=== PATIENT | female | born 1940 | race Two or more races ===

== ENCOUNTER 2017-04-18 13:35 | Emergency (ER) | payer OTHER, MEDICAID ==
[~2017-04-18] VITALS: Ht 157.5 cm; Wt 62.6 kg
[~2017-04-18 13:35] MED LIST: ALPR0.254 PO; BUSP15TA60 PO; CAR125T PO; DOCU-94 PO; LISI40TA PO; OMEP20CA74 PO
[2017-04-18 14:42] LABS: Hematocrit 38.8 % (36.0-46.0); Hemoglobin 13.2 g/dL (12.2-16.2); Mean Corpuscular Volume 94.3 fL (80.0-100.0); Mean Platelet Volume 7.6 fL (6.9-10.8); Platelet Count (auto) 310 10^3/uL (140-450); Red Cell Distribution Width 12.9 % (11.8-14.3); White Blood Cell 10.6 10^3/uL (4.4-10.8)
[2017-04-18 14:44] LABS: Metamyelocytes % 0; Myelocytes % 0; Promyelocytes % 0; Reactive Lymphocytes 0
[2017-04-18 14:55] LABS: Albumin 3.5 g/dL (3.4-5.0); Anion Gap 11 (5-15); Aspartate Aminotransferase 18 U/L (15-37); BUN/Creatinine Ratio 22.2; Blood Urea Nitrogen 18 mg/dL (7-18); Calcium 8.6 mg/dL (8.5-10.1); Carbon Dioxide 23 mmol/L (21-32); Chloride 99 mmol/L (98-107); GFR African American 88 mL/min; GFR Non-African American 72 mL/min; Glucose 117 mg/dL (74-106); Potassium 4.2 mmol/L (3.5-5.1); Sodium 133 mmol/L (136-145)
[2017-04-18 14:59] LABS: Alkaline Phosphatase 80 U/L (45-117); Bilirubin, Total 0.4 mg/dL (0.2-1.0); Total Protein 7.5 g/dL (6.4-8.2)
[2017-04-18 17:34] LABS: Platelet Estimate Adequate
[2017-04-18 17:35] LABS: Burr Cells FEW
[2017-04-19 00:56] VITALS: BP 133/58
== END 2017-04-19 00:59 | disposition home or self-care (01) ==
LOC: ER 13:35 → EDBD 13:35 → ER 04-19 00:59
DX: F41.0 Panic disorder [episodic paroxysmal anxiety] (principal); I10 Essential (primary) hypertension; R07.89 Other chest pain; E11.9 Type 2 diabetes mellitus without complications; Z86.73 Personal history of transient ischemic attack (TIA), and cerebral infarction without residual deficits; Z79.899 Other long term (current) drug therapy
CPT/HCPCS: 36415; 70450; 71010; 80053; 83735; 84484; 85007; 85027; 93005

== ENCOUNTER 2021-07-15 14:14 | Emergency (ER) | payer MEDICAID, OTHER ==
[~2021-07-15] VITALS: Ht 167.6 cm; Wt 81.6 kg
[~2021-07-15 14:14] MED LIST changes: +ASPI1TAB20 PO; +ATOR40TA52 PO; +CLOP75TA28 PO; +DOCU1CAP46 PO; -LISI40TA PO; +LISI40TA11 PO; +LORA-655 PO; +MET25T PO; +NIFE1TAB31 PO; +NITR-87 PO; +PANT40TA2 PO; +RANO500T PO
[2021-07-15 19:35] VITALS: BP 162/84
[2021-07-15] MEDS ORDERED: SULF400T11 PO (19:41)
== END 2021-07-15 20:02 | disposition home or self-care (01) ==
LOC: EDBD 14:14 → ER 14:14
DX: M25.552 Pain in left hip (principal); M25.551 Pain in right hip; G89.4 Chronic pain syndrome; N39.0 Urinary tract infection, site not specified; E11.9 Type 2 diabetes mellitus without complications; I10 Essential (primary) hypertension; Z90.49 Acquired absence of other specified parts of digestive tract; W01.0XXA Fall on same level from slipping, tripping and stumbling without subsequent striking against object, initial encounter; Y93.89 Activity, other specified; Y92.89 Other specified places as the place of occurrence of the external cause; Y99.8 Other external cause status
CPT/HCPCS: 72192

== ENCOUNTER 2021-10-15 16:21 | Inpatient (IN) | payer OTHER, MEDICAID ==
[~2021-10-15] VITALS: Ht 157.5 cm; Wt 78.5 kg
[~2021-10-15 16:21] MED LIST changes: +SULF400T11 PO
[2021-10-15 17:17] LABS: Basophils # (auto) 0 10 ^3/uL (0-0.2); Basophils % (auto) 0.6 % (0.0-2.0); Eosinophils # (auto) 0.1 10 ^3/uL (0-0.8); Eosinophils % (auto) 1.4 % (0.0-7.0); Hematocrit 34.4 % (36.0-46.0); Lymphocytes # (auto) 1.3 10 ^3/uL (0.4-5.4); Lymphocytes % (auto) 20.7 % (10.0-50.0); Mean Corpuscular Hemoglobin 31.3 pg (28.0-32.0); Mean Corpuscular Hgb Conc. 34.8 g/dL (32.0-36.0); Monocytes # (auto) 0.6 10 ^3/uL (0-1.3); Monocytes % (auto) 8.8 % (0.0-12.0); Neutrophils # (auto) 4.4 10 ^3/uL (1.6-8.6); Neutrophils % (auto) 68.5 % (37.0-80.0); Red Blood Cells 3.82 10^6/uL (4.0-5.20); Red Cell Distribution Width 14.2 % (11.8-14.3); White Blood Cell 6.4 10^3/uL (4.4-10.8)
[2021-10-15 17:33] LABS: Albumin 3.3 g/dL (3.4-5.0); BUN/Creatinine Ratio 16.3; Potassium 3.9 mmol/L (3.5-5.1)
[2021-10-15 17:36] LABS: Bilirubin, Total 0.2 mg/dL (0.2-1.0); Total Protein 7.3 g/dL (6.4-8.2)
[2021-10-15] MEDS: SOD CHL 0.45% 1,000 ML IV SCH (22:15)
[2021-10-15] MEDS ORDERED: NITROGLYCERIN 0.4 MG SL TAB SL PRN (22:15)
[2021-10-15] MEDS ORDERED: MORPHINE SULFATE INJECTION 2 MG/ML SYRG IV PRN (22:15)
[2021-10-15] MEDS ORDERED: DEXTROSE (50%) 50ML SYRG IV PRN (22:30)
[2021-10-15] MEDS: busPIRone HCL 10 MG TAB PO SCH (22:58)
[2021-10-16] VITALS (8 sets, daily range): BP systolic 140–166; BP diastolic 50–76
[2021-10-16] MEDS ORDERED: LOSA25TA38 PO (01:39)
[2021-10-16] MEDS: InsuLIN REG 1unit/0.01ml Soln (100units/ml) SC SCH ×4 (06:39→22:00)
[2021-10-16] MEDS: ACCU-CHEK COMFORT CURVE STRIP VI SCH ×4 (06:39→23:42)
[2021-10-16] MEDS ORDERED: ATOR20TA50 PO (07:43)
[2021-10-16] MEDS: ATORVASTATIN 20 MG TAB PO SCH (09:15)
[2021-10-16] MEDS: ASPirin-EC 81 mg tab PO SCH (09:15)
[2021-10-16] MEDS: CLOPIDOGREL BISULFATE 75 MG TAB PO SCH (09:15)
[2021-10-16] MEDS: PANTOPRAZOLE 40 MG TAB PO SCH (09:15)
[2021-10-16] MEDS: LISINOPRIL 20 MG TAB PO SCH (09:15)
[2021-10-16] MEDS: CARVEDILOL 12.5 MG TAB PO SCH ×2 (09:16→23:42)
[2021-10-16] MEDS: DOCUSATE SOD 100 MG CAP PO SCH (09:16)
[2021-10-16] MEDS: busPIRone HCL 10 MG TAB PO SCH ×2 (09:16→23:41)
[2021-10-16] MEDS: RANOLAZINE ER 500 MG TAB PO SCH ×2 (09:16→23:42)
[2021-10-16] MEDS: NIFEdipine ER 30 MG TAB PO SCH (09:17)
[2021-10-16] MEDS: SOD CHL 0.45% 1,000 ML IV SCH (14:35)
[2021-10-17 04:49] VITALS: BP 125/56
[2021-10-17] MEDS: SOD CHL 0.45% 1,000 ML IV SCH (05:09)
[2021-10-17] MEDS: InsuLIN REG 1unit/0.01ml Soln (100units/ml) SC SCH ×4 (06:08→21:57)
[2021-10-17] MEDS: ACCU-CHEK COMFORT CURVE STRIP VI SCH ×4 (06:09→21:57)
[2021-10-17 09:00] VITALS: BP 139/59
[2021-10-17] MEDS: DOCUSATE SOD 100 MG CAP PO SCH (09:00)
[2021-10-17] MEDS: RANOLAZINE ER 500 MG TAB PO SCH ×2 (09:01→21:57)
[2021-10-17] MEDS: NIFEdipine ER 30 MG TAB PO SCH (09:01)
[2021-10-17] MEDS: ATORVASTATIN 20 MG TAB PO SCH (09:01)
[2021-10-17] MEDS: ASPirin-EC 81 mg tab PO SCH (09:01)
[2021-10-17] MEDS: LISINOPRIL 20 MG TAB PO SCH (09:02)
[2021-10-17] MEDS: busPIRone HCL 10 MG TAB PO SCH ×2 (09:02→21:56)
[2021-10-17] MEDS: CLOPIDOGREL BISULFATE 75 MG TAB PO SCH (09:02)
[2021-10-17] MEDS: PANTOPRAZOLE 40 MG TAB PO SCH (09:02)
[2021-10-17] MEDS: CARVEDILOL 12.5 MG TAB PO SCH ×2 (09:03→21:57)
[2021-10-17 13:00] VITALS: BP 136/60
[2021-10-17 17:00] VITALS: BP 145/67
[2021-10-17 22:00] VITALS: BP 136/60
[2021-10-18] MEDS: SOD CHL 0.45% 1,000 ML IV SCH ×2 (00:15→17:40)
[2021-10-18 05:00] VITALS: BP 135/67
[2021-10-18] MEDS: InsuLIN REG 1unit/0.01ml Soln (100units/ml) SC SCH ×4 (06:39→21:55)
[2021-10-18] MEDS: ACCU-CHEK COMFORT CURVE STRIP VI SCH ×4 (06:39→21:54)
[2021-10-18 09:00] VITALS: BP 157/70
[2021-10-18] MEDS: busPIRone HCL 10 MG TAB PO SCH ×2 (10:05→21:43)
[2021-10-18] MEDS: RANOLAZINE ER 500 MG TAB PO SCH ×2 (10:06→21:47)
[2021-10-18] MEDS: ATORVASTATIN 20 MG TAB PO SCH (10:06)
[2021-10-18] MEDS: DOCUSATE SOD 100 MG CAP PO SCH (10:08)
[2021-10-18] MEDS: CLOPIDOGREL BISULFATE 75 MG TAB PO SCH (10:08)
[2021-10-18] MEDS: ASPirin-EC 81 mg tab PO SCH (10:08)
[2021-10-18] MEDS: PANTOPRAZOLE 40 MG TAB PO SCH (10:08)
[2021-10-18] MEDS: LISINOPRIL 20 MG TAB PO SCH (10:09)
[2021-10-18] MEDS: NIFEdipine ER 30 MG TAB PO SCH (10:09)
[2021-10-18] MEDS: CARVEDILOL 12.5 MG TAB PO SCH ×2 (10:10→21:46)
[2021-10-18 13:00] VITALS: BP 140/60
[2021-10-18 16:34] VITALS: BP 134/54
[2021-10-18 22:00] VITALS: BP 126/50
[2021-10-19 05:00] VITALS: BP 133/47
[2021-10-19] MEDS: InsuLIN REG 1unit/0.01ml Soln (100units/ml) SC SCH ×4 (06:14→22:00)
[2021-10-19] MEDS: RANOLAZINE ER 500 MG TAB PO SCH ×2 (09:03→22:06)
[2021-10-19] MEDS: busPIRone HCL 10 MG TAB PO SCH ×2 (09:04→22:05)
[2021-10-19] MEDS: DOCUSATE SOD 100 MG CAP PO SCH (09:04)
[2021-10-19] MEDS: LISINOPRIL 20 MG TAB PO SCH (09:04)
[2021-10-19] MEDS: ASPirin-EC 81 mg tab PO SCH (09:05)
[2021-10-19] MEDS: CLOPIDOGREL BISULFATE 75 MG TAB PO SCH (09:06)
[2021-10-19] MEDS: NIFEdipine ER 30 MG TAB PO SCH (09:06)
[2021-10-19] MEDS: CARVEDILOL 12.5 MG TAB PO SCH ×2 (09:08→22:06)
[2021-10-19] MEDS: ACCU-CHEK COMFORT CURVE STRIP VI SCH ×4 (09:10→22:06)
[2021-10-19 09:14] VITALS: BP 167/74
[2021-10-19] MEDS: ATORVASTATIN 20 MG TAB PO SCH (10:00)
[2021-10-19] MEDS: PANTOPRAZOLE 40 MG TAB PO SCH (10:32)
[2021-10-19] MEDS: SOD CHL 0.45% 1,000 ML IV SCH (10:39)
[2021-10-19 13:00] VITALS: BP 130/54
[2021-10-19] MEDS ORDERED: ZOLPIDEM TARTRATE 5 MG TAB PO PRN (16:45)
[2021-10-19 17:00] VITALS: BP 116/54
[2021-10-19] MEDS: ACETAMINOPHEN 500 MG TAB PO PRN (17:19)
[2021-10-19 22:00] VITALS: BP 142/59
[2021-10-19] MEDS ORDERED: TEMAZEPAM 15 MG CAP PO ONE (23:15)
[2021-10-20] MEDS: SOD CHL 0.45% 1,000 ML IV SCH ×2 (03:13→18:47)
[2021-10-20] MEDS: ACCU-CHEK COMFORT CURVE STRIP VI SCH ×4 (06:36→22:00)
[2021-10-20] MEDS: InsuLIN REG 1unit/0.01ml Soln (100units/ml) SC SCH ×4 (06:36→21:38)
[2021-10-20 06:45] VITALS: BP 148/79
[2021-10-20 08:25] VITALS: BP 148/69
[2021-10-20] MEDS: busPIRone HCL 10 MG TAB PO SCH ×2 (09:27→21:34)
[2021-10-20] MEDS: DOCUSATE SOD 100 MG CAP PO SCH (09:27)
[2021-10-20] MEDS: ASPirin-EC 81 mg tab PO SCH (09:28)
[2021-10-20] MEDS: CLOPIDOGREL BISULFATE 75 MG TAB PO SCH (09:28)
[2021-10-20] MEDS: CARVEDILOL 12.5 MG TAB PO SCH ×3 (09:28→23:00)
[2021-10-20] MEDS: ATORVASTATIN 20 MG TAB PO SCH (09:28)
[2021-10-20] MEDS: NIFEdipine ER 30 MG TAB PO SCH (09:29)
[2021-10-20] MEDS: RANOLAZINE ER 500 MG TAB PO SCH ×2 (09:30→21:33)
[2021-10-20] MEDS: PANTOPRAZOLE 40 MG TAB PO SCH (09:30)
[2021-10-20] MEDS: LISINOPRIL 20 MG TAB PO SCH (09:31)
[2021-10-20 13:00] VITALS: BP 135/66
[2021-10-20 16:59] VITALS: BP 148/67
[2021-10-20 22:00] VITALS: BP 132/50
[2021-10-21 05:15] VITALS: BP 131/57
[2021-10-21] MEDS: InsuLIN REG 1unit/0.01ml Soln (100units/ml) SC SCH ×2 (06:11→11:11)
[2021-10-21] MEDS: ACCU-CHEK COMFORT CURVE STRIP VI SCH ×2 (06:11→11:11)
[2021-10-21] MEDS: ACETAMINOPHEN 500 MG TAB PO PRN (09:12)
[2021-10-21] MEDS: busPIRone HCL 10 MG TAB PO SCH (09:12)
[2021-10-21] MEDS: ATORVASTATIN 20 MG TAB PO SCH (09:13)
[2021-10-21] MEDS: ASPirin-EC 81 mg tab PO SCH (09:13)
[2021-10-21] MEDS: CLOPIDOGREL BISULFATE 75 MG TAB PO SCH (09:13)
[2021-10-21] MEDS: DOCUSATE SOD 100 MG CAP PO SCH (09:13)
[2021-10-21] MEDS: PANTOPRAZOLE 40 MG TAB PO SCH (09:14)
[2021-10-21] MEDS: NIFEdipine ER 30 MG TAB PO SCH (09:14)
[2021-10-21] MEDS: RANOLAZINE ER 500 MG TAB PO SCH (09:14)
[2021-10-21] MEDS: LISINOPRIL 20 MG TAB PO SCH (09:14)
[2021-10-21] MEDS: SOD CHL 0.45% 1,000 ML IV SCH (11:12)
[2021-10-21 11:37] VITALS: BP 166/57
[2021-10-21 12:07] VITALS: BP 166/57
== END 2021-10-21 15:42 | disposition short-term general hospital (02) | DRG 280 ==
LOC: ER 16:21 → EDUNIT# 16:21 → EDBD 16:21 → OVERFLOW 22:01 → TELE-WESTW 23:31
PROVIDERS: ADMIT Internal Medicine; ATTEND Family Medicine
DX: I21.4 Non-ST elevation (NSTEMI) myocardial infarction (principal); I50.23 Acute on chronic systolic (congestive) heart failure; I11.0 Hypertensive heart disease with heart failure; I25.10 Atherosclerotic heart disease of native coronary artery without angina pectoris; I08.0 Rheumatic disorders of both mitral and aortic valves; E11.9 Type 2 diabetes mellitus without complications; E78.00 Pure hypercholesterolemia, unspecified; K21.9 Gastro-esophageal reflux disease without esophagitis; I45.10 Unspecified right bundle-branch block; I44.7 Left bundle-branch block, unspecified; F32.A Depression, unspecified; F41.9 Anxiety disorder, unspecified; Z20.822 Contact with and (suspected) exposure to COVID-19; Z79.02 Long term (current) use of antithrombotics/antiplatelets; Z79.82 Long term (current) use of aspirin; Z79.899 Other long term (current) drug therapy; Z90.49 Acquired absence of other specified parts of digestive tract; Z79.4 Long term (current) use of insulin
CPT/HCPCS: 36415; 71045; 80053; 82962; 83880; 84484; 85025; 93005; 93306; G0378; J1815

== ENCOUNTER 2022-12-23 14:56 | Emergency (ER) | payer OTHER, MEDICAID ==
[~2022-12-23] VITALS: Ht 160 cm; Wt 65.9 kg
[~2022-12-23 14:56] MED LIST changes: +ATOR20TA50 PO; -ATOR40TA52 PO; -BUSP15TA60 PO; -CAR125T PO; -LISI40TA11 PO; -LORA-655 PO; +LOSA25TA15 PO; -NIFE1TAB31 PO; -OMEP20CA74 PO
[2022-12-23 15:59] LABS: Albumin 3.3 g/dL (3.4-5.0); Calcium 8.6 mg/dL (8.5-10.1); Magnesium 2.4 mg/dL (1.6-2.6); Potassium 4.9 mmol/L (3.5-5.1)
[2022-12-23 16:02] LABS: BUN/Creatinine Ratio 17.8 (10.0-20.0); Bilirubin, Total 0.3 mg/dL (0.2-1.0); Total Protein 6.8 g/dL (6.4-8.2)
[2022-12-23 16:04] LABS: Basophils # (auto) 0 10 ^3/uL (0-0.2); Basophils % (auto) 0.5 % (0.0-2.0); Eosinophils # (auto) 0.1 10 ^3/uL (0-0.8); Eosinophils % (auto) 1.8 % (0.0-7.0); Hematocrit 33.4 % (36.0-46.0); Hemoglobin 11.2 g/dL (12.2-16.2); Lymphocytes # (auto) 1.2 10 ^3/uL (0.4-5.4); Lymphocytes % (auto) 14.9 % (10.0-50.0); Mean Corpuscular Hgb Conc. 33.6 g/dL (32.0-36.0); Mean Corpuscular Volume 92.1 fL (80.0-100.0); Monocytes # (auto) 0.6 10 ^3/uL (0-1.3); Monocytes % (auto) 7.7 % (0.0-12.0); Neutrophils # (auto) 6.1 10 ^3/uL (1.6-8.6); Neutrophils % (auto) 75.1 % (37.0-80.0); Red Blood Cells 3.63 10^6/uL (4.0-5.20); Red Cell Distribution Width 13.9 % (11.8-14.3); White Blood Cell 8.2 10^3/uL (4.4-10.8)
[2022-12-23 18:00] VITALS: BP 178/78
[2022-12-23] MEDS ORDERED: cloNIDine HCL 0.1 MG TAB PO ONE (18:00)
== END 2022-12-23 18:01 | disposition home or self-care (01) ==
LOC: EDBD 14:56 → ER 14:56
DX: I16.0 Hypertensive urgency (principal); I10 Essential (primary) hypertension; R42 Dizziness and giddiness; B34.9 Viral infection, unspecified; K21.9 Gastro-esophageal reflux disease without esophagitis; E78.5 Hyperlipidemia, unspecified; Z90.49 Acquired absence of other specified parts of digestive tract
CPT/HCPCS: 36415; 70450; 71045; 80053; 82962; 83735; 84484; 85025; 93005

== ENCOUNTER 2023-02-27 16:08 | Emergency (ER) | payer OTHER, MEDICAID ==
[~2023-02-27] VITALS: Ht 157.5 cm; Wt 65.4 kg
[~2023-02-27 16:08] MED LIST changes: +AML5T PO; -ATOR20TA50 PO; +ATOR40TA52 PO; +CARV12.544 PO; +CARV25TA55 PO; -DOCU1CAP46 PO; +LEV25T PO; +MELO-335 PO; -MET25T PO; +MIRT1TAB38 PO; -NITR-87 PO; +SACU1TAB7 PO; -SULF400T11 PO
[2023-02-27 17:33] LABS: Basophils # (auto) 0 10 ^3/uL (0-0.2); Basophils % (auto) 0.6 % (0.0-2.0); Eosinophils # (auto) 0.2 10 ^3/uL (0-0.8); Eosinophils % (auto) 2.7 % (0.0-7.0); Hematocrit 33.6 % (36.0-46.0); Hemoglobin 11.5 g/dL (12.2-16.2); Lymphocytes # (auto) 1.8 10 ^3/uL (0.4-5.4); Lymphocytes % (auto) 21.3 % (10.0-50.0); Mean Corpuscular Hemoglobin 31.9 pg (28.0-32.0); Mean Corpuscular Hgb Conc. 34.3 g/dL (32.0-36.0); Monocytes # (auto) 0.8 10 ^3/uL (0-1.3); Monocytes % (auto) 9.1 % (0.0-12.0); Neutrophils # (auto) 5.6 10 ^3/uL (1.6-8.6); Neutrophils % (auto) 66.3 % (37.0-80.0); Nucleated Red Blood Cells % 0.1 %; Red Blood Cells 3.61 10^6/uL (4.0-5.20); White Blood Cell 8.4 10^3/uL (4.4-10.8)
[2023-02-27 17:52] LABS: Alanine Aminotransferase 17 U/L (7-40); Albumin 4.3 g/dL (3.2-4.8); Alkaline Phosphatase 73 U/L (46-116); Anion Gap 5.7 (5-15); Aspartate Aminotransferase 17 U/L (13-40); BUN/Creatinine Ratio 16.1 (10.0-20.0); Bilirubin, Total 0.3 mg/dL (0.2-1.0); Blood Urea Nitrogen 19 mg/dL (9-23); Calcium 9.6 mg/dL (8.5-10.1); Carbon Dioxide 22.3 mmol/L (20-30); Chloride 102 mmol/L (98-107); Glucose 108 mg/dL (74-106); Lipase 62 U/L (12-53); Potassium 5.2 mmol/L (3.5-5.1); Sodium 130 mmol/L (136-145); Total Protein 7.1 g/dL (5.7-8.2)
[2023-02-27] MEDS ORDERED: SODIUM CHLORIDE 0.9% 500 ML IV ONE (18:15)
[2023-02-27] MEDS ORDERED: ALBUTEROL SULF 2.5 MG/0.5ML(0.5%) NEB SOLN NEB ONE (18:15)
[2023-02-27 19:14] LABS: Urine Bacteria NONE SEEN /hpf (None Seen); Urine Blood Negative /uL (Negative); Urine Clarity Clear (Clear); Urine Color Colorless (Yellow); Urine Protein, UAD Negative (Negative); Urine Specific Gravity 1.003 (1.001-1.035); Urine Urobilinogen Normal (Negative); Urine WBC 1 /hpf (0 - 5); Urine pH 5.5 (5.0-8.0)
[2023-02-27 20:00] VITALS: TEMP 97.7
[2023-02-27 22:30] LABS: Alanine Aminotransferase 16 U/L (7-40); Albumin 4.3 g/dL (3.2-4.8); Alkaline Phosphatase 69 U/L (46-116); Anion Gap 6.8 (5-15); Aspartate Aminotransferase 13 U/L (13-40); BUN/Creatinine Ratio 15.9 (10.0-20.0); Blood Urea Nitrogen 18 mg/dL (9-23); Calcium 9.7 mg/dL (8.7-10.4); Carbon Dioxide 21.2 mmol/L (20-30); Chloride 102 mmol/L (98-107); Glucose 143 mg/dL (74-106); Sodium 130 mmol/L (136-145)
[2023-02-27 22:31] LABS: Bilirubin, Total 0.4 mg/dL (0.2-1.0)
[2023-02-27] MEDS ORDERED: METR-344 PO (22:43)
[2023-02-27] MEDS ORDERED: CIPR-173 PO (22:43)
[2023-02-27] MEDS ORDERED: FUROSEMIDE 20 MG/2 ML VIAL IV ONE (23:00)
[2023-02-28 00:40] VITALS: BP 145/53; PULSE 69; RESP 18; O2SAT 98
== END 2023-02-28 00:49 | disposition home or self-care (01) ==
LOC: ER 16:08
DX: K57.92 Diverticulitis of intestine, part unspecified, without perforation or abscess without bleeding (principal); I10 Essential (primary) hypertension; K59.00 Constipation, unspecified; E11.9 Type 2 diabetes mellitus without complications; I25.10 Atherosclerotic heart disease of native coronary artery without angina pectoris; E78.5 Hyperlipidemia, unspecified; Z90.49 Acquired absence of other specified parts of digestive tract; Z90.89 Acquired absence of other organs; Z79.899 Other long term (current) drug therapy; Z79.82 Long term (current) use of aspirin
CPT/HCPCS: 36415; 71045; 74176; 80053; 81001; 83605; 83690; 83880; 84484; 85025; 93005; 94640; 96361; 96374; 99285; J1940

== ENCOUNTER 2024-02-26 12:28 | Inpatient (IN) | payer OTHER, MEDICAID ==
[~2024-02-26] VITALS: Ht 152.4 cm; Wt 71.0 kg
[~2024-02-26 12:28] MED LIST changes: +AMLO1TAB22 PO; +ASPI-543 PO; +CIPR-173 PO; +CYA100I IM; +CYCL0.05 EACHEYE; +EMPA1TAB PO; +LEVO25TA6 PO; +LOSA-533 PO; -LOSA25TA15 PO; -MELO-335 PO; +MELO15TA29 PO; +METR-344 PO; +RANO500T3 PO
[2024-02-26 14:28] LABS: Basophils # (auto) 0 10 ^3/uL (0-0.2); Basophils % (auto) 0.7 % (0.0-2.0); Eosinophils # (auto) 0.3 10 ^3/uL (0-0.8); Eosinophils % (auto) 3.8 % (0.0-7.0); Hematocrit 37.7 % (36.0-46.0); Hemoglobin 13.3 g/dL (12.2-16.2); Lymphocytes # (auto) 1.4 10 ^3/uL (0.4-5.4); Lymphocytes % (auto) 21.2 % (10.0-50.0); Mean Corpuscular Hemoglobin 33.8 pg (28.0-32.0); Mean Corpuscular Hgb Conc. 35.2 g/dL (32.0-36.0); Mean Corpuscular Volume 96.2 fL (80.0-100.0); Monocytes # (auto) 0.8 10 ^3/uL (0-1.3); Monocytes % (auto) 11.5 % (0.0-12.0); Neutrophils # (auto) 4.3 10 ^3/uL (1.6-8.6); Neutrophils % (auto) 62.8 % (37.0-80.0); Platelet Count (auto) 221 10^3/uL (140-450); Red Blood Cells 3.92 10^6/uL (4.0-5.20); Red Cell Distribution Width 13.8 % (11.8-14.3); White Blood Cell 6.8 10^3/uL (4.4-10.8)
[2024-02-26 14:42] LABS: Chloride 100 mmol/L (98-107); Potassium 4.8 mmol/L (3.5-5.1); Sodium 129 mmol/L (136-145)
[2024-02-26 14:43] LABS: Anion Gap 6 (5-15); Calcium 9.7 mg/dL (8.7-10.4); Carbon Dioxide 23 mmol/L (20-30)
[2024-02-26 14:48] LABS: BUN/Creatinine Ratio 19.1 (10.0-20.0); Blood Urea Nitrogen 21 mg/dL (9-23); Glucose 94 mg/dL (74-106)
[2024-02-26] MEDS ORDERED: ONDANSETRON HCL 4 MG/2 ML VIAL IV PRN (18:30)
[2024-02-26] MEDS ORDERED: HYDROcodone-ACET 5/325MG TAB PO PRN (18:30)
[2024-02-26] MEDS ORDERED: MORPHINE SULFATE INJ 2 MG/ml SYRG IV PRN (19:00)
[2024-02-26] MEDS ORDERED: NITROGLYCERIN 0.4 MG SL TAB SL PRN (19:00)
[2024-02-26] MEDS: AZITHROMYCIN 500MG/ 250ML 250 ML IV ONE (20:22)
[2024-02-26] MEDS: SODIUM CHLORIDE 0.9% 1,000 ML IV SCH (20:22)
[2024-02-26 20:26] LABS: Urine Bacteria None Seen /hpf (None Seen)
[2024-02-26] MEDS: ACETAMINOPHEN 325 MG TAB PO PRN (20:29)
[2024-02-26 20:36] LABS: Urine Blood Negative /uL (Negative); Urine Clarity Clear (Clear); Urine Color Colorless (Yellow); Urine Protein, UAD Negative (Negative); Urine Specific Gravity 1.002 (1.001-1.035); Urine Urobilinogen Normal (Negative); Urine WBC 2 /hpf (0 - 5)
[2024-02-26] MEDS: ATORVASTATIN 20 MG TAB PO SCH (22:50)
[2024-02-26] MEDS: CARVEDILOL 3.125 MG TAB PO SCH (22:51)
[2024-02-27] VITALS (10 sets, daily range): BP systolic 135–175; BP diastolic 58–77; PULSE 59–79; RESP 16–21; TEMP 97.5–98.3; O2SAT 0–99
[2024-02-27] MEDS: LEVOTHYROXINE SODIUM 25 MCG TAB PO SCH (06:22)
[2024-02-27 06:48] LABS: Basophils # (auto) 0 10 ^3/uL (0-0.2); Basophils % (auto) 0.6 % (0.0-2.0); Eosinophils # (auto) 0.4 10 ^3/uL (0-0.8); Eosinophils % (auto) 5.9 % (0.0-7.0); Hematocrit 37.8 % (36.0-46.0); Hemoglobin 12.9 g/dL (12.2-16.2); Lymphocytes # (auto) 1.5 10 ^3/uL (0.4-5.4); Lymphocytes % (auto) 21.5 % (10.0-50.0); Mean Corpuscular Hemoglobin 32.7 pg (28.0-32.0); Mean Corpuscular Hgb Conc. 34.2 g/dL (32.0-36.0); Mean Corpuscular Volume 95.6 fL (80.0-100.0); Monocytes # (auto) 0.8 10 ^3/uL (0-1.3); Monocytes % (auto) 11.3 % (0.0-12.0); Neutrophils # (auto) 4.2 10 ^3/uL (1.6-8.6); Neutrophils % (auto) 60.7 % (37.0-80.0); Platelet Count (auto) 235 10^3/uL (140-450); Red Blood Cells 3.95 10^6/uL (4.0-5.20); Red Cell Distribution Width 13.6 % (11.8-14.3); White Blood Cell 6.9 10^3/uL (4.4-10.8)
[2024-02-27 06:57] LABS: Alanine Aminotransferase 12 U/L (7-40); Albumin 4.4 g/dL (3.2-4.8); Alkaline Phosphatase 54 U/L (46-116); Anion Gap 6 (5-15); Aspartate Aminotransferase 12 U/L (13-40); Blood Urea Nitrogen 17 mg/dL (9-23); Calcium 9.8 mg/dL (8.7-10.4); Carbon Dioxide 25 mmol/L (20-30); Chloride 103 mmol/L (98-107); Glucose 96 mg/dL (74-106); Potassium 4.1 mmol/L (3.5-5.1)
[2024-02-27 06:58] LABS: Bilirubin, Total 0.5 mg/dL (0.2-1.0); Total Protein 7.2 g/dL (5.7-8.2)
[2024-02-27 06:59] LABS: Sodium 134 mmol/L (136-145)
[2024-02-27] MEDS: ASPirin 81 mg TAB PO SCH (08:48)
[2024-02-27] MEDS: AZITHROMYCIN 500MG/ 250ML 250 ML IV SCH (08:49)
[2024-02-27] MEDS: DOCUSATE SOD 100 MG CAP PO PRN (08:51)
[2024-02-27] MEDS: cefTRIAXone 1GM/50ML D5W 50 ML IV ONE (17:47)
[2024-02-27] MEDS: CARVEDILOL 12.5 MG TAB PO SCH (21:48)
[2024-02-27] MEDS: SACUBITRIL-VALSARTAN 24mg/26mg TAB PO SCH (21:48)
[2024-02-28] VITALS (8 sets, daily range): BP systolic 119–150; BP diastolic 44–56; PULSE 64–77; RESP 16–19; TEMP 97.8–98.3; O2SAT 96–99
[2024-02-28] MEDS: cefTRIAXone 1GM/50ML D5W 50 ML IV SCH (10:31)
[2024-02-29] VITALS (8 sets, daily range): BP systolic 130–148; BP diastolic 54–61; PULSE 67–92; RESP 16–18; TEMP 97.8–98.6; O2SAT 95–100
[2024-02-29] MEDS ORDERED: LEVO500T91 PO (13:15)
[2024-03-01] VITALS (7 sets, daily range): BP systolic 132–150; BP diastolic 51–62; PULSE 67–72; RESP 16–18; TEMP 97.7–98.5; O2SAT 97–99
== END 2024-03-01 17:20 | disposition home health service (06) | DRG 178 ==
LOC: EDBD 12:28 → ER 12:28 → TELE 19:01 → TELE-WESTW 23:44
PROVIDERS: ADMIT Nurse Practitioner Family; ATTEND Internal Medicine Geriatric Medicine
DX: J15.69 Pneumonia due to other Gram-negative bacteria (principal); E87.1 Hypo-osmolality and hyponatremia; I50.22 Chronic systolic (congestive) heart failure; J15.9 Unspecified bacterial pneumonia; E78.5 Hyperlipidemia, unspecified; E11.9 Type 2 diabetes mellitus without complications; E03.9 Hypothyroidism, unspecified; I11.0 Hypertensive heart disease with heart failure; I25.10 Atherosclerotic heart disease of native coronary artery without angina pectoris; I08.0 Rheumatic disorders of both mitral and aortic valves; K21.9 Gastro-esophageal reflux disease without esophagitis; Z79.02 Long term (current) use of antithrombotics/antiplatelets; Z79.82 Long term (current) use of aspirin; Z90.49 Acquired absence of other specified parts of digestive tract; Z79.899 Other long term (current) drug therapy; Z95.2 Presence of prosthetic heart valve; Z82.49 Family history of ischemic heart disease and other diseases of the circulatory system; Z79.4 Long term (current) use of insulin
CPT/HCPCS: 36415; 70450; 71045; 80048; 80053; 81001; 83880; 84443; 84484; 85025; 93005; 93306; 97110; 97116; 97163; 97530; G0378

== ENCOUNTER 2024-04-11 13:22 | Emergency (ER) | payer OTHER, MEDICAID ==
[~2024-04-11] VITALS: Ht 157.5 cm; Wt 65.4 kg
[~2024-04-11 13:22] MED LIST changes: -AML5T PO; -ASPI1TAB20 PO; -CARV12.544 PO; -CIPR-173 PO; -LEV25T PO; +LEVO500T91 PO; -METR-344 PO; -RANO500T PO
[2024-04-11 14:31] LABS: Urine Bacteria None Seen /hpf (None Seen)
[2024-04-11 14:54] LABS: Urine Blood Negative /uL (Negative); Urine Clarity Clear (Clear); Urine Color Light-Yellow (Yellow); Urine Protein, UAD TRACE (Negative); Urine Specific Gravity 1.007 (1.001-1.035); Urine Urobilinogen Normal (Negative); Urine WBC 4 /hpf (0 - 5); Urine pH 7.5 (5.0-9.0)
[2024-04-11 15:10] LABS: Basophils # (auto) 0.1 10 ^3/uL (0-0.2); Basophils % (auto) 0.8 % (0.0-2.0); Eosinophils # (auto) 0.2 10 ^3/uL (0-0.8); Eosinophils % (auto) 2.7 % (0.0-7.0); Hematocrit 39.4 % (36.0-46.0); Hemoglobin 13.5 g/dL (12.2-16.2); Lymphocytes # (auto) 1.5 10 ^3/uL (0.4-5.4); Lymphocytes % (auto) 21.2 % (10.0-50.0); Mean Corpuscular Hemoglobin 33.1 pg (28.0-32.0); Mean Corpuscular Hgb Conc. 34.3 g/dL (32.0-36.0); Mean Corpuscular Volume 96.3 fL (80.0-100.0); Monocytes # (auto) 0.6 10 ^3/uL (0-1.3); Neutrophils # (auto) 4.7 10 ^3/uL (1.6-8.6); Neutrophils % (auto) 66.3 % (37.0-80.0); Platelet Count (auto) 249 10^3/uL (140-450); Red Blood Cells 4.09 10^6/uL (4.0-5.20); Red Cell Distribution Width 13.6 % (11.8-14.3); White Blood Cell 7.1 10^3/uL (4.4-10.8)
[2024-04-11 15:28] LABS: Alanine Aminotransferase 17 U/L (7-40); Albumin 4.4 g/dL (3.2-4.8); Alkaline Phosphatase 71 U/L (46-116); Anion Gap 8 (5-15); Aspartate Aminotransferase 20 U/L (13-40); BUN/Creatinine Ratio 17.3 (10.0-20.0); Bilirubin, Total 0.4 mg/dL (0.2-1.0); Blood Urea Nitrogen 19 mg/dL (9-23); Calcium 10.1 mg/dL (8.7-10.4); Carbon Dioxide 24 mmol/L (20-31); Chloride 102 mmol/L (98-107); Glucose 109 mg/dL (74-106); Potassium 4.5 mmol/L (3.5-5.1); Sodium 134 mmol/L (136-145); Total Protein 7.2 g/dL (5.7-8.2)
[2024-04-11 22:50] VITALS: BP 170/66; PULSE 71; RESP 18; TEMP 98.8; O2SAT 98
== END 2024-04-11 22:50 | disposition home or self-care (01) ==
LOC: ER 13:36
DX: I16.0 Hypertensive urgency (principal); I25.10 Atherosclerotic heart disease of native coronary artery without angina pectoris; F41.9 Anxiety disorder, unspecified; E78.5 Hyperlipidemia, unspecified; E11.9 Type 2 diabetes mellitus without complications; Z90.49 Acquired absence of other specified parts of digestive tract; Z79.899 Other long term (current) drug therapy; Z79.82 Long term (current) use of aspirin; Z79.84 Long term (current) use of oral hypoglycemic drugs
CPT/HCPCS: 36415; 71045; 80053; 81001; 82962; 83880; 84484; 85025; 93005

== ENCOUNTER 2024-06-27 09:15 | Inpatient (IN) | payer OTHER, MEDICAID ==
[~2024-06-27] VITALS: Ht 157.5 cm; Wt 73.5 kg
[2024-06-27] MEDS: SODIUM CHLORIDE 0.9% 500 ML IV ONE (10:35)
--- NOTE | 2024-06-27 10:40 | ED.PDOC ---
History of Present Illness HPI Comments 84 y/o F presents with c/o bilateral hip pain and right-sided headache s/p mechanical fall and injury, today. Patient is a Syriac speaker and endorses on sustaining a fall, this morning, after having nausea, vomiting, diarrhea, and poor appetite w/associated weakness for the past 3x days. She states on vomiting and diarrhea symptoms subsiding since. She also admits to taking her blood pressure medication, this morning. She denies having any additional injuries, dizziness, vision or speech changes, or other associated symptoms or modifiers at this time. Chief Complaint: General Weakness Time Seen by MD: 10:10 Primary Care Provider: HEBERT Reviewed Notes: Nurses Notes, Station Installer Notes, Medications, Allergies Allergies: Coded Allergies: No Known Drug Allergy (Verified Allergy, Unknown, 07/08/21) Home Meds Active Scripts Levofloxacin Hemihydrate (LEVAQUIN 500 MG) 500 Mg Tab, 1 TAB PO DAILY, #5 TAB Prov:GEORGETTE BOATENG MD 02/29/24 Losartan Potassium (Losartan Potassium) 25 Mg Tab, 25 MG PO DAILY for 30 Days, #30 MG 2 Refills Prov:MECHELLE SAMUEL DO 01/07/23 Clopidogrel Bisulfate (Plavix) 75 Mg Tab, 75 MG PO DAILY, #30 TAB Prov:TOMASA CASAREZ MD 12/31/20 Reported Medications Cyclosporine (Ophth) (Restasis) 0.05 % Emu, 1 DROP EACHEYE UD for 28 Days, #5.5 3 Refills Instill 1 drop into affected eye as directed. 02/29/24 Empagliflozin (Jardiance) 10 Mg Tab, 1 TAB PO DAILY for 30 Days, #30 02/29/24 Vitamin B12 (Vitamin B-12) 1,000 Mcg/1 Ml Ij, 1 ML IM QMONTHLY for 28 Days, #1 02/29/24 Sacubitril-Valsartan (Entresto 49-51 mg) 1 Tab Tab, 1 TAB PO BID for 90 Days, #180 02/29/24 Ranolazine (Ranolazine ER) 500 Mg Tab, 1 TAB PO BID for 90 Days, #180 02/29/24 Levothyroxine Sodium (Levothyroxine Sodium) 25 Mcg Tab, 1 TAB PO DAILY for 90 Days, #90 02/29/24 Carvedilol (Carvedilol) 25 Mg Tab, 1 TAB PO BID for 90 Days, #180 02/29/24 Aspirin (Aspir-Low) 81 Mg Tab, 1 TAB PO DAILY for 30 Days, #30 02/29/24 Amlodipine Besylate (Amlodipine Besylate) 5 Mg Tab, 2.5 MG PO DAILY for 90 Days, #90 02/29/24 Mirtazapine (Mirtazapine Oral Disintegrating Tablet) 15 Mg Tab, 1 TAB PO QPM for 90 Days, #90 01/05/23 Atorvastatin Calcium (ATORVASTATIN CALCIUM) 40 Mg Tab, 1 TAB PO HS for 90 Days, #90 01/05/23 Meloxicam (Meloxicam) 15 Mg Tab, 1 TAB PO DAILY for 90 Days, #90 01/05/23 Pantoprazole Sodium Sesquihydr (Protonix) 40 Mg Tab, 20 MG PO DAILY, #30 TAB 12/28/20 Docusate Sodium (Colace) 100 Mg Cap, 1 CAP PO DAILY for 90 Days, #90 04/02/17 Alprazolam (Alprazolam) 0.25 Mg Tab, 0.25 MG PO PRN for ANXIETY, TAB 04/02/17 Information Source: Patient, Emergency Med Personnel Mode of Arrival: EMS Severity: Moderate Timing: Hours Duration: Since onset Prehospital treatment: 12 Lead EKG, Managed Care Manager Past Medical History PAST MEDICAL HISTORY: Anxiety, CAD, DM, High Lipids, HTN, Thyroid Surgical History: Appendectomy, Cholecystectomy 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: No Pertinent 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 Family History Family History: Reviewed,noncontributory to illness Social History Smoker: Non-Smoker Alcohol: Denies ETOH Use Drugs: Denies Drug Use Lives In: Home Constitutional: denies: chills, diaphoresis, fatigue, fever, malaise, sweats, weakness, others EENTM: denies: blurred vision, double vision, ear bleeding, ear discharge, ear drainage, ear pain, ear ringing, eye pain, eye redness, hearing loss, mouth pain, mouth swelling, nasal discharge, nose bleeding, nose congestion, nose pain, photophobia, tearing, throat pain, throat swelling, voice changes, others Respiratory: denies: cough, hemoptysis, orthopnea, SOB at rest, shortness of breath, SOB with excertion, stridor, wheezing, others Cardiovascular: denies: chest pain, dizzy spells, diaphoresis, Dyspnea on exertion, edema, irregular heart beat, left arm pain, lightheadedness, palpitations, PND, syncope, others Gastrointestinal: denies: abdomen distended, abdominal pain, blood streaked bowels, constipated, diarrhea, dysphagia, difficulty swallowing, hematemesis, melena, nausea, poor appetite, poor fluid intake, rectal bleeding, rectal pain, vomiting, others Genitourinary: denies: abnormal vagina bleeding, burning, dyspareunia, dysuria, flank pain, frequency, hematuria, incontinence, pain, , vagina discharge, urgency, others Neurological: reports: headache; denies: dizziness, fainting, left sided numbness, left sided weakness, numbness, paresthesia, pre-existing deficit, right sided numbness, right sided weakness, seizure, speech problems, tingling, tremors, weakness, others Musculoskeletal: reports: joint pain (hips, bilaterally); denies: back pain, gout, joint swelling, muscle pain, muscle stiffness, neck pain, others Integumetry: denies: bruises, change in color, change in hair/nails, dryness, laceration, lesions, lumps, rash, wounds, others Allergic/Immunocompromised: denies: Difficulty Healing, Frequent Infections, Hives, Itching, others Hematologic/Lymphatic: denies: anemia, blood clots, easy bleeding, easy bruising, swollen glands, others Endocrine: denies: excessive hunger, excessive sweating, excessive thirst, excessive urination, flushing, intolerance to cold, intolerance to heat, unexplained weight gain, unexplained weight loss, others Psychiatric: denies: anxiety, bipolar disorder, depression, hopeless, panic disorder, schizophrenia, sleepless, suicidal, others All Other Systems: Reviewed and Negative Physical Exam General Appearance: Moderate Distress HEENT: Normal ENT Inspection, Pharynx Normal, TMs Normal Neck: Full Range of Motion, Non-Tender, Normal, Normal Inspection Respiratory: Chest Non-Tender, Lungs Clear, No Accessory Muscle Use, No Respiratory Distress, Normal Breath Sounds Cardiovascular: No Edema, No JVD, No Murmur, No Gallop, Normal Peripheral Pulses, Regular Rate/Rhythm Breast Exam: Deferred Gastrointestinal: No Organomegaly, No Pulsatile Mass, Normal Bowel Sounds, Soft, Tenderness Genitalia: Deferred Pelvic: Deferred Rectal: Deferred Extremities: No calf tenderness, Normal capillary refill, Normal inspection, Normal range of motion, Non-tender, No pedal edema Musculoskeletal : Apperance: Normal Neurologic: Alert, 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 Was a procedure done?: No Differential Dx Considerations may include: fracture, dislocation, sprain, contusions, bruising, viral syndrome, gastritis, gastroenteritis, spoiled food, malnutrition, dehydration, closed head injury X-Ray, Labs, Meds, VS Vital Signs Date Time Temp Pulse Resp B/P (MAP) Pulse Ox O2 Delivery O2 Flow Rate FiO2 06/27/24 10:44 97.4 65 16 142/78 (99) 99 97.4 06/27/24 10:44 68 16 99 Room Air 06/27/24 10:08 56 06/27/24 09:16 97.4 67 16 145/62 (89) 99 Lab Test 06/27/24 10:52 06/27/24 10:37 Range/Units White Blood Count 6.4 4.4-10.8 10^3/uL Red Blood Count 4.16 4.0-5.20 10^6/uL Hemoglobin 13.7 12.2-16.2 g/dL Hematocrit 40.2 36.0-46.0 % Mean Corpuscular Volume 96.5 80.0-100.0 fL Mean Corpuscular Hemoglobin 32.8 H 28.0-32.0 pg Mean Corpuscular Hemoglobin Concent 34.0 32.0-36.0 g/dL Red Cell Distribution Width 13.1 11.8-14.3 % Platelet Count 204 140-450 10^3/uL Mean Platelet Volume 7.7 6.9-10.8 fL Neutrophils (%) (Auto) 68.6 37.0-80.0 % Lymphocytes (%) (Auto) 18.5 10.0-50.0 % Monocytes (%) (Auto) 11.8 0.0-12.0 % Eosinophils (%) (Auto) 0.6 0.0-7.0 % Basophils (%) (Auto) 0.5 0.0-2.0 % Neutrophils # (Auto) 4.4 1.6-8.6 10 ^3/uL Lymphocytes # (Auto) 1.2 0.4-5.4 10 ^3/uL Monocytes # (Auto) 0.8 0-1.3 10 ^3/uL Eosinophils # (Auto) 0 0-0.8 10 ^3/uL Basophils # (Auto) 0 0-0.2 10 ^3/uL Nucleated Red Blood Cells 0.2 % Sodium Level 126 L 136-145 mmol/L Potassium Level 4.7 3.5-5.1 mmol/L Chloride Level 94 L 98-107 mmol/L Carbon Dioxide Level 25 20-31 mmol/L Anion Gap 7 5-15 Blood Urea Nitrogen 18 9-23 mg/dL Creatinine 1.50 H 0.550-1.02 mg/dL Glomerular Filtration Rate Calc 34 >90 mL/min BUN/Creatinine Ratio 12.0 10.0-20.0 Serum Glucose 117 H 74-106 mg/dL Calcium Level 10.0 8.7-10.4 mg/dL Urine Color Light-yellow Yellow Urine Clarity Clear Clear Urine pH 7.0 5.0-9.0 Urine Specific [place] 1.006 1.001-1.035 Urine Protein Trace H Negative Urine Ketones Negative Negative Urine Blood Negative Negative /uL Urine Nitrite Negative Negative Urine Bilirubin Negative Negative Urine Urobilinogen Normal Negative mg/dL Urine Leukocyte Esterase Negative Negative /uL Urine RBC <1 0 - 4 /hpf Urine WBC 1 0 - 5 /hpf Urine Squamous Epithelial Cells Few <5 /hpf Urine Bacteria None seen None Seen /hpf Urine Glucose 4+ H Normal mg/dL Current Medications Medications (Trade) Dose Ordered Sig/Dilcia Route Start Time Stop Time Status Last Admin Sodium Chloride 500 ml @ 500 mls/hr Q1H ONCE IV 06/27/24 10:30 06/27/24 11:29 DC 06/27/24 10:35 PROCEDURE(s): PL2CT - PELVIS WO CONTRAST IMPRESSION: 1. .No acute fracture or dislocation in the pelvis. PROCEDURE(s): HWOCT - HEAD WITHOUT CONTRAST IMPRESSION: 1. No acute intracranial process. Time of 1ST Reevaluation: 10:40 Reevaluation 1ST: Unchanged Patient Education/Counseling: Diagnosis, Treatment Family Education/Counseling: No Family Present Departure 1 Departure Time of Disposition: 14:08 Impression: Primary Impression: Autonomic dysfunction Additional Impression: Pelvic pain Disposition: 09 ADMITTED INPATIENT Admit to: Tele Condition: Fair Critical Care Note Critical Care Time?: Yes (35 min-critical care time only) Stability Stability form required: Yes Unstable for transfer: Telemetry monitoring (Telemetry monitoring required), ED Physician Assesment (Clinical assesment) Heart Score Heart Score: Heart Score Response (Comments) Value History N/A 0 EKG N/A 0 Age N/A 0 Risk Factors N/A 0 Troponin Normal limit 0 Total 0 I personally scribed for JUAN FRANCISCO RDZ MD ([email or web address]) on 06/27/24 at 10:40. Electronically submitted by Arturo Baker ([email or web address]). I personally scribed for JUAN FRANCISCO RDZ MD ([email or web address]) on 06/27/24 at 12:06. Electronically submitted by Arturo Baker ([email or web address]). JUAN FRANCISCO RDZ MD Jun 27, 2024 10:40
[2024-06-27 11:19] LABS: Basophils # (auto) 0 10 ^3/uL (0-0.2); Basophils % (auto) 0.5 % (0.0-2.0); Eosinophils # (auto) 0 10 ^3/uL (0-0.8); Eosinophils % (auto) 0.6 % (0.0-7.0); Hematocrit 40.2 % (36.0-46.0); Hemoglobin 13.7 g/dL (12.2-16.2); Lymphocytes # (auto) 1.2 10 ^3/uL (0.4-5.4); Lymphocytes % (auto) 18.5 % (10.0-50.0); Mean Corpuscular Hemoglobin 32.8 pg (28.0-32.0); Mean Corpuscular Volume 96.5 fL (80.0-100.0); Monocytes # (auto) 0.8 10 ^3/uL (0-1.3); Monocytes % (auto) 11.8 % (0.0-12.0); Neutrophils # (auto) 4.4 10 ^3/uL (1.6-8.6); Neutrophils % (auto) 68.6 % (37.0-80.0); Nucleated Red Blood Cells % 0.2 %; Platelet Count (auto) 204 10^3/uL (140-450); Red Blood Cells 4.16 10^6/uL (4.0-5.20); Red Cell Distribution Width 13.1 % (11.8-14.3); White Blood Cell 6.4 10^3/uL (4.4-10.8)
--- NOTE | 2024-06-27 11:22 | DVH ---
EXAM: CT HEAD WITHOUT CONTRAST HISTORY: fall and syncope COMPARISON: CT HEAD WITHOUT CONTRAST on DOS: 02/26/24, CT HEAD WITHOUT CONTRAST on DOS: 01/05/23, CT HEA D WITHOUT CONTRAST on DOS: 12/23/22 TECHNIQUE: Axial images were obtained and reformatted in coronal and sagittal planes. All CT scans at this medical facility are performed using dose modulation techniques as appropriate t o a performed exam including the following: Automated exposure control was utilized; adjustment of th e MA and/or KV according to patient size; and use of iterative reconstruction technique. CT Dose: CTDI volume is 51 mGy. Dose-length product is 1329 mGy*cm FINDINGS: Supratentorial Region: No evidence for large acute territorial ischemia. No intracranial hemorrhage is noted. Posterior Fossa: No acute abnormality. Brainstem: Unremarkable. Sellar/Suprasellar Region: Unremarkable. Ventricles, Cisterns, Sulci: Age-appropriate. Orbits: Unremarkable. Paranasal Sinuses: Unremarkable. Mastoid Air Cells: Unremarkable. Vasculature: Unremarkable. Bones/Soft Tissues: No acute abnormality. Other: None. IMPRESSION: 1. No acute intracranial process.
--- NOTE | 2024-06-27 11:29 | DVH ---
Exam: CT PELVIS WO CONTRAST History: fall and syncope Comparison Study: None available at time of dictation. TECHNIQUE: Multidetector CT of the pelvis was performed from iliac crests through the ischial tuberos ities. Imaging was performed without IV contrast using axial images. Coronal and sagittal reformats w ere obtained from the axial data set by the technologist. Radiation Dose Information: CT Dose: CTDI volume is 9.83 mGy. Dose-length product is 1328.99 mGy*cm FINDINGS: Evaluation of solid organs is limited due to lack of intravenous contrast use. Findings: No acute fracture of the pelvis. Old right pubic body fracture. Bilateral hip joint space narrowing and osteophyte formation. There is lower lumbar spondylosis. Sigmoid diverticulosis without evidence of acute diverticulitis. IMPRESSION: 1. .No acute fracture or dislocation in the pelvis. Radiation optimization: All CT scans at this facility use at least one of these dose optimization letitia hniques: automated exposure control mA and/or kV adjustment per patient size (includes targeted exam s where dose is matched to clinical indication) or iterative reconstruction.
[2024-06-27 11:30] LABS: Potassium 4.7 mmol/L (3.5-5.1)
[2024-06-27 11:31] LABS: Anion Gap 7 (5-15); Carbon Dioxide 25 mmol/L (20-31)
[2024-06-27 11:37] LABS: Blood Urea Nitrogen 18 mg/dL (9-23)
[2024-06-27 11:41] LABS: Chloride 94 mmol/L (98-107); Glucose 117 mg/dL (74-106); Sodium 126 mmol/L (136-145)
[2024-06-27 12:20] LABS: Urine Bacteria None Seen /hpf (None Seen)
[2024-06-27 12:48] LABS: Urine Blood Negative /uL (Negative); Urine Clarity Clear (Clear); Urine Color Light-Yellow (Yellow); Urine Protein, UAD TRACE (Negative); Urine Specific Gravity 1.006 (1.001-1.035); Urine Squamous Epithelial Cell FEW /hpf (<5); Urine Urobilinogen Normal (Negative); Urine WBC 1 /hpf (0 - 5)
[2024-06-27] MEDS ORDERED: OPTH EACHEYE SCH (16:15)
[2024-06-27] MEDS ORDERED: NITROGLYCERIN 0.4 MG SL TAB SL PRN (16:15)
[2024-06-27] MEDS ORDERED: ONDANSETRON HCL 4 MG/2 ML VIAL IV PRN (16:15)
[2024-06-27] MEDS ORDERED: MORPHINE SULFATE INJ 2 MG/ml SYRG IV PRN (16:15)
[2024-06-27] MEDS ORDERED: CYCLOSPORINE 0.05% EACHEYE SCH (16:15)
[2024-06-27] MEDS ORDERED: ALPRAZolam 0.25 MG TAB PO PRN (16:15)
--- NOTE | 2024-06-27 16:50 | DVHHP2 ---
History of Present Illness Reason for Visit: Bilateral hip pain right-sided head pain after fall History of Present Illness 84-year-old female past medical history anxiety CAD diabetes hyperlipidemia h ypertension surgical history appendectomy hemorrhoids gallbladder surgery chief complaint patient comes in stating that she has been having some nausea and vomiting and diarrhea not able to keep anything down since June 25, 2024. She states her symptoms was so bad her daughter went and got her Imodium pills today and this morning when she was going to the bathroom she lost her balance and passed out and fell and hit her head in her right pelvis now she states she feels weak and right headache and hip pain. Patient currently denies any chest pain no shortness with the breath no dizziness. She denies any recent antibiotics that was prescribed. Patient did state she had one episode of black stool it was four days prior but no recent bleeding when evaluating labs and imaging ns was provided cbc unremarkable, na 126, cl 91, crea 1.50 glucse 117, ua with glucose, ct brain negative, ct pelvis negative, pt states had egd completed 10 yrs ago was negative, with this findings will admit and provide iv hydration. Past Medical History Anxiety CAD diabetes hyperlipidemia hypertension Past Surgical History Appendectomy gallbladder surgery hemorrhoids Family History Reviewed, non-contributory to the management of this case. Past Social History The patient lives at home, denies smoking, alcohol or illicit drugs abuse. Review of Systems Constitutional: No: Fever, Chills, Sweats, Weakness, Malaise, Other Eyes: No: Pain, Vision change, Conjunctivae inflammation, Eyelid inflammation, Other, Redness ENT: No: Ear pain, Ear discharge, Nose pain, Nose discharge, Nose congestion, Mouth pain, Mouth swelling, Throat pain, Throat swelling, Other Respiratory: No: Cough, Dry, Shortness of breath, SOB with excertion, Wheezing, Hemoptysis, Pleuritic Pain, Sputum, Wheezing, Other Cardiovascular: No: Chest Pain, Palpitations, Orthopnea, Paroxysmal Noc. Dyspnea, Edema, Lt Headedness, Other Gastrointestinal: Nausea, Vomiting, Abdominal Pain; No: Diarrhea, Constipation, Melena, Hematochezia, Other Genitourinary: No Dysuria, No Frequency, No Incontinence, No Hematuria, No Retention, No Other Musculoskeletal: No: other, neck pain, shoulder pain, arm pain, back pain, hand pain, leg pain, foot pain Skin: No: Rash, Lesions, Jaundice, Bruising, Other Neurological: Other (Headache); No: Weakness, Numbness, Incoordination, Change in speech, Confusion, Seizures Allergies: Coded Allergies: No Known Drug Allergy (Verified Allergy, Unknown, 07/08/21) Exam Vital Signs Vital Signs Date Time Temp Pulse Resp B/P (MAP) Pulse Ox O2 Delivery O2 Flow Rate FiO2 06/27/24 10:44 97.4 65 16 142/78 (99) 99 97.4 06/27/24 10:44 Room Air General Appearance: Alert, Oriented X3, Cooperative, No acute distress HEENT: Atraumatic, PERRLA, EOMI, Mucous membr. moist/pink Respiratory: Clear to auscultation, Normal air movement Cardiovascular: Regular rate, Normal S1, Normal S2, No murmurs Abdominal: Normal bowel sounds, Soft, No tenderness, No hepatospenomegaly, No masses Extremities: No clubbing, No cyanosis, No edema, Normal pulses, No tenderness/swelling Skin: No rashes, No breakdown, No significant lesion Neuro: Normal speech, Strength at 5/5 X4 ext, Normal tone, Sensation intact, Cranial nerves 3-12 NL Psych/Mental Status: Mental status NL, Mood NL Labs/Xrays CT scan of the pelvis unremarkable CT scan of the brain unremarkable I reviewed labs, imaging CT scan abdomen pelvis, EKG and all diagnostic studies on this patient from ED records and the medical chart Labs Test 06/27/24 10:52 06/27/24 10:37 Range/Units White Blood Count 6.4 4.4-10.8 10^3/uL Red Blood Count 4.16 4.0-5.20 10^6/uL Hemoglobin 13.7 12.2-16.2 g/dL Hematocrit 40.2 36.0-46.0 % Mean Corpuscular Volume 96.5 80.0-100.0 fL Mean Corpuscular Hemoglobin 32.8 H 28.0-32.0 pg Mean Corpuscular Hemoglobin Concent 34.0 32.0-36.0 g/dL Red Cell Distribution Width 13.1 11.8-14.3 % Platelet Count 204 140-450 10^3/uL Mean Platelet Volume 7.7 6.9-10.8 fL Neutrophils (%) (Auto) 68.6 37.0-80.0 % Lymphocytes (%) (Auto) 18.5 10.0-50.0 % Monocytes (%) (Auto) 11.8 0.0-12.0 % Eosinophils (%) (Auto) 0.6 0.0-7.0 % Basophils (%) (Auto) 0.5 0.0-2.0 % Neutrophils # (Auto) 4.4 1.6-8.6 10 ^3/uL Lymphocytes # (Auto) 1.2 0.4-5.4 10 ^3/uL Monocytes # (Auto) 0.8 0-1.3 10 ^3/uL Eosinophils # (Auto) 0 0-0.8 10 ^3/uL Basophils # (Auto) 0 0-0.2 10 ^3/uL Nucleated Red Blood Cells 0.2 % Sodium Level 126 L 136-145 mmol/L Potassium Level 4.7 3.5-5.1 mmol/L Chloride Level 94 L 98-107 mmol/L Carbon Dioxide Level 25 20-31 mmol/L Anion Gap 7 5-15 Blood Urea Nitrogen 18 9-23 mg/dL Creatinine 1.50 H 0.550-1.02 mg/dL Glomerular Filtration Rate Calc 34 >90 mL/min BUN/Creatinine Ratio 12.0 10.0-20.0 Serum Glucose 117 H 74-106 mg/dL Calcium Level 10.0 8.7-10.4 mg/dL Urine Color Light-yellow Yellow Urine Clarity Clear Clear Urine pH 7.0 5.0-9.0 Urine Specific [place] 1.006 1.001-1.035 Urine Protein Trace H Negative Urine Ketones Negative Negative Urine Blood Negative Negative /uL Urine Nitrite Negative Negative Urine Bilirubin Negative Negative Urine Urobilinogen Normal Negative mg/dL Urine Leukocyte Esterase Negative Negative /uL Urine RBC <1 0 - 4 /hpf Urine WBC 1 0 - 5 /hpf Urine Squamous Epithelial Cells Few <5 /hpf Urine Bacteria None seen None Seen /hpf Urine Glucose 4+ H Normal mg/dL Assessment/Plan Assessment/Plan acute fall likely from dehydration (pt has history of diarrhea/nausea and vomiting) ct brain negative/ct pelvis negative ordered ivf for now ordered zofran prn pain ordered morphine as needed for pain PT consult fu results acute dehydration cont ivf for now acute diarrhea ordered stool cultures and op ordered ivf for now acute intractable hip pain ordered morphine as needed for pain ?acute lower gi bleed ordered occult blood in stool if positive pls consult gi ordered protonix for now ordered ivf for now acute elevation in crea likely from dehydration ordered ivf hydration acute intractable right side of head s/p fall ct scan brain negative ordered morphine as needed for pain acute anxiety cont home medication uncontrolled benign essential hypertension cont home medication chronic hld cont home medication fen/ppx clr liquid protonix scd no dvt ppx since might be active bleed plan admit to medicine PT consult Plan discussed with: Patient My Orders Orders - OLLIE KAUR DNP Procedure Category Date Status Time Prothrombin Time W/ LAB 06/27/24 Verified INR 16:03 Alprazolam Tablet PHA 06/27/24 Verified (Xanax Tablet) 16:15 Amlodipine Tablet PHA 06/28/24 Verified (Norvasc Tablet) 10:00 Docusate Sodium PHA 06/28/24 Verified Capsule (Colace 10:00 Empagliflozin PHA 06/28/24 Verified (Jardiance) 10:00 Levothyroxine Tablet PHA 06/28/24 Verified (Synthroid Tablet) 10:00 Losartan Tablet PHA 06/28/24 Verified (Cozaar Tablet) 10:00 Ranolazine (Ranexa Er) PHA 06/27/24 Verified 22:00 (Nf) Atorvastatin PHA 06/27/24 Verified Calcium 22:00 (Nf) Carvedilol PHA 06/27/24 Verified 22:00 (Nf) Cyclosporine PHA 06/27/24 Verified (Ophth) (Restasis) 16:15 (Nf) Mirtazapine PHA 06/27/24 Verified (Mirtazapine Oral 18:00 (NF) PHA 06/27/24 Verified Sacubitril-Valsartan 22:00 Admit ADMIT 06/27/24 Verified 16:03 Allergies TOTOIE 06/27/24 Verified 16:03 Code Status CODE 06/27/24 Verified 16:03 0.9% Ns 1000 Ml PHA 06/27/24 Verified 16:15 Ondansetron Hcl PHA 06/27/24 Verified (Zofran) 16:15 Fall Risk Precautions [facility] 06/27/[address] 16:03 Complete Blood Count LAB 06/28/24 Verified 04:00 Comprehensive LAB 06/28/24 Verified Metabolic Panel 04:00 Condition: Stable [place] 06/27/24 Verified 16:03 Clear Liq Diet DIET 06/27/24 Verified Dinner BRP [place] 06/27/24 Verified 16:03 Morphine Sulfate PHA 06/27/24 Verified Injection 16:15 Sequential [place] 06/27/24 Verified Compression Device Nitroglycerin PHA 06/27/24 Verified Sublingual (Ntrostat 16:15 Stat Ekg For Chest [facility] 06/27/24 Verified Pain 16:03 Notify Md Of Changes [facility] 06/27/24 Verified From Base 16:03 Jewel Inserter For [facility] 06/27/24 Verified 24 Hours 16:03 Emergency Dysrhythmia [facility] 06/27/24 Verified Protocol 16:03 Rhythm Strips Once [facility] 06/27/24 Verified Every Shift 16:03 Oxygen By Nasal RT 06/27/24 Verified Cannula 16:03 Thyroid Stimulating [facility] 06/27/24 Verified Hormone 16:03 Stool Occult Blood LAB 06/27/24 Verified 16:03 Stool Bacterial [facility] 06/27/24 Verified Culture 16:03 Clostridium Difficile [facility] 06/27/24 Verified Toxin 16:03 Pt Request For Service PT 06/27/24 Verified 16:03 Fall Precautions [facility] 06/27/24 Verified Initiated 16:03 Fall Risk Precautions [facility] 06/27/[address] 16:03 Date of Service: Jun 27, 2024 Billing Provider: OLLIE KAUR DNP Common Visit Codes: [id number] INP/OBS CARE (HIGH) OLLIE KAUR DNP Jun 27, 2024 16:50
[2024-06-27 17:47] LABS: INR 1.08 (0.9-1.15); Prothrombin Time 11.4 sec (9.3-11.8)
--- NOTE | 2024-06-27 18:59 | ECG ---
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
[2024-06-27] MEDS: ATORVASTATIN 20 MG TAB PO SCH (22:00)
[2024-06-27] MEDS: MIRTAZAPINE 30 MG TAB PO SCH (23:05)
[2024-06-27] MEDS: CARVEDILOL 12.5 MG TAB PO SCH (23:06)
[2024-06-27] MEDS: RANOLAZINE ER 500 MG TAB PO SCH (23:07)
[2024-06-27] MEDS: Sacubitril-Valsartan (Entresto 49-51 mg) TAB PO SCH (23:12)
[2024-06-27 23:28] VITALS: O2SAT 98
[2024-06-28] MEDS: SODIUM CHLORIDE 0.9% 1,000 ML IV SCH (00:11)
[2024-06-28] MEDS ORDERED: HYDR25TA5 PO (00:35)
[2024-06-28 01:00] VITALS: BP 144/42; PULSE 67; RESP 18; TEMP 97.9; O2SAT 100
[2024-06-28 05:00] VITALS: BP 114/37; PULSE 90; RESP 16; TEMP 97.5; O2SAT 99
[2024-06-28] MEDS: LEVOTHYROXINE SODIUM 25 MCG TAB PO SCH (05:50)
[2024-06-28 09:00] VITALS: BP 138/63; PULSE 64; RESP 18; TEMP 98.9; O2SAT 96
[2024-06-28 09:30] LABS: Basophils # (auto) 0 10 ^3/uL (0-0.2); Basophils % (auto) 0.3 % (0.0-2.0); Eosinophils # (auto) 0.1 10 ^3/uL (0-0.8); Hematocrit 35.8 % (36.0-46.0); Hemoglobin 12.2 g/dL (12.2-16.2); Lymphocytes # (auto) 0.9 10 ^3/uL (0.4-5.4); Mean Corpuscular Hemoglobin 32.5 pg (28.0-32.0); Mean Corpuscular Volume 95.6 fL (80.0-100.0); Monocytes # (auto) 0.8 10 ^3/uL (0-1.3); Monocytes % (auto) 10.5 % (0.0-12.0); Neutrophils # (auto) 5.9 10 ^3/uL (1.6-8.6); Neutrophils % (auto) 76.2 % (37.0-80.0); Nucleated Red Blood Cells % 0.2 %; Platelet Count (auto) 274 10^3/uL (140-450); Red Blood Cells 3.74 10^6/uL (4.0-5.20); Red Cell Distribution Width 13.2 % (11.8-14.3); White Blood Cell 7.7 10^3/uL (4.4-10.8)
[2024-06-28 09:47] LABS: Albumin 3.8 g/dL (3.2-4.8); Alkaline Phosphatase 58 U/L (46-116); Anion Gap 7 (5-15); Aspartate Aminotransferase 32 U/L (13-40); BUN/Creatinine Ratio 13.4 (10.0-20.0); Bilirubin, Total 0.3 mg/dL (0.2-1.0); Blood Urea Nitrogen 17 mg/dL (9-23); Calcium 9.3 mg/dL (8.7-10.4); Carbon Dioxide 23 mmol/L (20-31); Chloride 100 mmol/L (98-107); Potassium 4.3 mmol/L (3.5-5.1); Total Protein 6.3 g/dL (5.7-8.2)
[2024-06-28 09:52] LABS: Alanine Aminotransferase 46 U/L (7-40); Glucose 110 mg/dL (74-106); Sodium 130 mmol/L (136-145)
[2024-06-28] MEDS: amLODIPine BESYLATE 5 MG TAB PO SCH (09:53)
[2024-06-28] MEDS: DOCUSATE SOD 100 MG CAP PO SCH (09:53)
[2024-06-28] MEDS: LOSARTAN POTASSIUM 25 MG TAB PO SCH (09:54)
[2024-06-28] MEDS: EMPAGLIFLOZIN 10 MG TAB PO SCH (09:54)
[2024-06-28 12:28] VITALS: BP 105/56; PULSE 60; RESP 17; TEMP 98.1; O2SAT 95
--- NOTE | 2024-06-28 12:49 | DVHPN2 ---
Changes from previous H/P or p: No Changes Eyes: No Pain, No Vision change, No Conjunctivae inflammation, No Eyelid inflammation, No Other, No Redness ENT: No Ear pain, No Ear discharge, No Nose pain, No Nose discharge, No Nose congestion, No Mouth pain, No Mouth swelling, No Throat pain, No Throat swelling, No Other Cardiovascular: No Chest Pain, No Palpitations, No Orthopnea, No Paroxysmal Noc. Dyspnea, No Edema, No Lt Headedness, No Other Respiratory: No Cough, No Dry, No Shortness of breath, No SOB with excertion, No Wheezing, No Hemoptysis, No Pleuritic Pain, No Sputum, No Other Gastrointestinal: Nausea, Vomiting, Abdominal Pain; No Diarrhea, No Constipation, No Melena, No Hematochezia, No Other Genitourinary: No Dysuria, No Frequency, No Incontinence, No Hematuria, No Retention, No Other Musculoskeletal: No other, No neck pain, No shoulder pain, No arm pain, No back pain, No hand pain, No leg pain, No foot pain Skin: No Rash, No Lesions, No Jaundice, No Bruising, No Other Objective Vitals Vital Signs Date Time Temp Pulse Resp B/P (MAP) Pulse Ox O2 Delivery O2 Flow Rate FiO2 06/28/24 12:28 98.1 60 17 105/56 (72) 95 98.1 06/28/24 08:00 Room Air* 0 21 Intake/Output Intake and Output 06/28/24 07:00 Intake Total 620 ml Output Total 4 ml Balance 616 ml Intake Oral 620 ml Output Urine Total 3 ml Stool Total 1 ml Medications Current Medications Medications Dose Ordered Sig/Dilcia Route Start Time Stop Time Status Last Admin Dose Admin Alprazolam 0.25 mg QID PRN PO 06/27/24 16:15 Amlodipine Besylate 2.5 mg DAILY PO 06/28/24 10:00 06/28/24 09:53 2.5 MG Docusate Sodium 100 mg DAILY PO 06/28/24 10:00 06/28/24 09:53 100 MG Empaglifozin 10 mg DAILY PO 06/28/24 10:00 06/28/24 09:54 10 MG Levothyroxine Sodium 25 mcg DAILY@0600 PO 06/28/24 06:00 06/28/24 05:50 25 MCG Losartan Potassium 25 mg DAILY PO 06/28/24 10:00 06/28/24 09:54 25 MG Ranolazine 500 mg BID PO 06/27/24 22:00 06/28/24 09:55 500 MG Atorvastatin Calcium 40 mg HS PO 06/27/24 22:00 Carvedilol 25 mg BID PO 06/27/24 22:00 06/28/24 09:55 25 MG Patient Own Medication 1 drop UD EACHEYE 06/27/24 16:15 Hold Mirtazapine 15 mg QPM PO 06/27/24 18:00 06/27/24 23:05 15 MG Patient Own Medication 1 tab BID PO 06/27/24 22:00 06/28/24 11:46 1 TAB Sodium Chloride 1,000 ml @ 100 mls/hr Q10H IV 06/27/24 16:15 06/28/24 11:47 100 MLS/HR Ondansetron HCl 4 mg Q4HP PRN IV 06/27/24 16:15 Morphine Sulfate 2 mg Q4HPRN PRN IV 06/27/24 16:15 Nitroglycerin 0.4 mg Q5MINP PRN SL 06/27/24 16:15 Laboratory Results Laboratory Tests 06/28/24 08:06 Chemistry Test 06/28/24 08:06 Albumin 3.8 g/dL (3.2-4.8) Calcium Level 9.3 mg/dL (8.7-10.4) Total Protein 6.3 g/dL (5.7-8.2) Coagulation Test 06/27/24 17:00 Prothrombin Time 11.4 sec (9.3-11.8) Prothrombin Time INR 1.08 (0.9-1.15) LFT Test 06/28/24 08:06 Alanine Aminotransferase (ALT) 46 U/L (7-40) H Alkaline Phosphatase 58 U/L (46-116) Aspartate Amino Transferase (AST) 32 U/L (13-40) Total Bilirubin 0.3 mg/dL (0.2-1.0) HgA1c, TSH Test 06/27/24 17:00 Thyroid Stimulating Hormone (TSH) 3.48 uIU/mL (0.55-4.78) Urinalysis Test 06/27/24 10:37 Urine Color Light-yellow (Yellow) Urine Clarity Clear (Clear) Urine pH 7.0 (5.0-9.0) Urine Specific [place] 1.006 (1.001-1.035) Urine Protein Trace (Negative) H Urine Ketones Negative (Negative) Urine Blood Negative /uL (Negative) Urine Nitrite Negative (Negative) Urine Bilirubin Negative (Negative) Urine Urobilinogen Normal mg/dL (Negative) Urine Leukocyte Esterase Negative /uL (Negative) Urine RBC <1 /hpf (0 - 4) Urine WBC 1 /hpf (0 - 5) Urine Squamous Epithelial Cells Few /hpf (<5) Urine Bacteria None seen /hpf (None Seen) Urine Glucose 4+ mg/dL (Normal) H Labs and/or images reviewed: Labs reviewed by me, Image(s) reviewed by me Assessment/Plan Assessment/Plan Acute generalized weakness Uncontrolled hypertension: Amlodipine History of nonischemic cardiomyopathy : Jardiance Coreg History of TAVR Hypercholesterolemia Anxiety: Xanax Type 2 diabetes Hypothyroidism Synthroid, TSH normal Hyponatremia sodium 126 replace sodium Check Ramya test Check flu test Check D-dimer Time spent 60 minutes Plan discussed with: Patient Date of Service: Jun 28, 2024 Billing Provider: GABO HERNANDEZ MD Common Visit Codes: [id number] INP/OBS CARE(HIGH) GABO HERNANDEZ MD Jun 28, 2024 12:49
--- NOTE | 2024-06-28 13:34 | DVH ---
CT ABDOMEN AND PELVIS WITHOUT CONTRAST CLINICAL HISTORY: Abdominal pain nausea and vomiting TECHNIQUE: Multiple contiguous axial images of the abdomen and pelvis without intravenous contrast. The images were reformatted degenerate coronal and sagittal reconstructions. All CT scans at this medical facility are performed using dose modulation techniques as appropriate t o a performed exam including the following:Automated exposure control was utilized; adjustment of the MA and/or KV according to patient size; and use of iterative reconstruction technique. Radiation Dose Information: CT Dose: CTDI volume is 9.62 mGy. Dose-length product is 515.02 mGy*cm Comparison: CT CT AB PEL WO CON-NO ORAL OR IV on DOS: 02/27/23, CT CHST AB PEL WO CON-NO IV/ORAL on DO S: 01/07/23 FINDINGS: Evaluation of the abdomen and pelvis is limited without intravenous contrast. The liver, gallbladder, pancreas, kidneys, adrenal glands, and spleen appear within normal limits. There is no gross evidence of abdominal lymphadenopathy. There is no free fluid or free air. The stomach grossly appears unremarkable. The small and large bowel loops demonstrate normal caliber . There are multiple diverticula in the distal colon without evidence of acute diverticulitis. The abdominal aorta and IVC appear within normal limits. The bladder appears unremarkable for the degree of distention. Pelvic organ grossly appears within no rmal limits. There is no gross evidence of a pelvic mass. There is no free fluid collection. Mild scarring versus atelectasis left lung base. There is no acute osseous abnormality. IMPRESSION: 1. There is no acute process in the abdomen and pelvis. 2. Distal colon diverticulosis. HS:Y
--- NOTE | 2024-06-28 14:04 | DVHINCON2 ---
GI Consult Consult Note GI consult note Date of Consultation: 06/28/2024 Chief Complaint: Abdominal pain, nausea and vomiting Referring Physician: Dr. Jean-Paul Hernandez H&P: 84-year-old female with past medical history of anxiety, CAD, diabetes, hyperlipidemia, and hypertension presented to ER status post fall Patient gives history of nausea and vomiting and diarrhea for three days, no nausea or vomiting at this time. No hematemesis Last bowel movement 3-4 days ago, patient's daughter treated her with [id number] Imodium No melena or red blood in stool Patient tolerating clear liquid diet, and is getting hungry and asking for more food Past Medical History: Anxiety CAD diabetes hyperlipidemia hypertension Past Surgical History: Appendectomy gallbladder surgery hemorrhoids Social History: NO smoking, drinking ETOH and use of illegal drugs. Family History: Noncontributory Review of Systems: Constitutional: no fever, chill, weight loss HEENT: no eye pain, no hearing loss, no oral lesion, no scleral icterus Heart: no chest pain, no chest pressure Lung: no cough, no dyspnea with exertion Abdomen: see HPI Physical exam: General: NAD, AAOX3 Chest: lung velez clear to auscultation Heart: RRR, no murmur Abdomen: non-distended, no tenderness to palpation, +BS Labs: Labs Test 06/28/24 08:06 06/27/24 17:00 06/27/24 10:37 Range/Units White Blood Count 7.7 4.4-10.8 10^3/uL Red Blood Count 3.74 L 4.0-5.20 10^6/uL Hemoglobin 12.2 12.2-16.2 g/dL Hematocrit 35.8 #L 36.0-46.0 % Mean Corpuscular Volume 95.6 80.0-100.0 fL Mean Corpuscular Hemoglobin 32.5 H 28.0-32.0 pg Mean Corpuscular Hemoglobin Concent 34.0 32.0-36.0 g/dL Red Cell Distribution Width 13.2 11.8-14.3 % Platelet Count 274 140-450 10^3/uL Mean Platelet Volume 7.9 6.9-10.8 fL Neutrophils (%) (Auto) 76.2 37.0-80.0 % Lymphocytes (%) (Auto) 12.0 10.0-50.0 % Monocytes (%) (Auto) 10.5 0.0-12.0 % Eosinophils (%) (Auto) 1.0 0.0-7.0 % Basophils (%) (Auto) 0.3 0.0-2.0 % Neutrophils # (Auto) 5.9 1.6-8.6 10 ^3/uL Lymphocytes # (Auto) 0.9 0.4-5.4 10 ^3/uL Monocytes # (Auto) 0.8 0-1.3 10 ^3/uL Eosinophils # (Auto) 0.1 0-0.8 10 ^3/uL Basophils # (Auto) 0 0-0.2 10 ^3/uL Nucleated Red Blood Cells 0.2 % Sodium Level 130 L 136-145 mmol/L Potassium Level 4.3 3.5-5.1 mmol/L Chloride Level 100 98-107 mmol/L Carbon Dioxide Level 23 20-31 mmol/L Anion Gap 7 5-15 Blood Urea Nitrogen 17 9-23 mg/dL Creatinine 1.27 H 0.550-1.02 mg/dL Glomerular Filtration Rate Calc 41 >90 mL/min BUN/Creatinine Ratio 13.4 10.0-20.0 Serum Glucose 110 H 74-106 mg/dL Calcium Level 9.3 8.7-10.4 mg/dL Total Bilirubin 0.3 0.2-1.0 mg/dL Aspartate Amino Transferase (AST) 32 13-40 U/L Alanine Aminotransferase (ALT) 46 H 7-40 U/L Alkaline Phosphatase 58 46-116 U/L Total Protein 6.3 5.7-8.2 g/dL Albumin 3.8 3.2-4.8 g/dL Lipase 18 12-53 U/L Prothrombin Time 11.4 9.3-11.8 sec Prothrombin Time INR 1.08 0.9-1.15 Thyroid Stimulating Hormone (TSH) 3.48 0.55-4.78 uIU/mL Urine Color Light-yellow Yellow Urine Clarity Clear Clear Urine pH 7.0 5.0-9.0 Urine Specific [place] 1.006 1.001-1.035 Urine Protein Trace H Negative Urine Ketones Negative Negative Urine Blood Negative Negative /uL Urine Nitrite Negative Negative Urine Bilirubin Negative Negative Urine Urobilinogen Normal Negative mg/dL Urine Leukocyte Esterase Negative Negative /uL Urine RBC <1 0 - 4 /hpf Urine WBC 1 0 - 5 /hpf Urine Squamous Epithelial Cells Few <5 /hpf Urine Bacteria None seen None Seen /hpf Urine Glucose 4+ H Normal mg/dL Imaging: CT abdomen and pelvis Results pending Assessment: Viral gastroenteritis Nausea and vomiting improving Diarrhea improving Acute generalized weakness Hyponatremia Plan: Discussed with Dr. High Stool for WBC culture and C diff Monitor labs CT abdomen pelvis results pending Symptomatic treatment recommended at this time Full liquid diet advance to soft if tolerating Recommend Flagyl if diarrhea recurs We will continue to monitor the patient Discussed plan with patient and RN Thank you for this consult Date of Service: Jun 28, 2024 Billing Provider: ILDEFONSO HERNANDEZ Common Visit Codes: CONSULT ONLY Consultation Codes: [id number] CONSULT <45MIN ILDEFONSO HERNANDEZ Jun 28, 2024 14:04
[2024-06-28 17:16] VITALS: BP 153/84; PULSE 65; RESP 19; TEMP 98.5; O2SAT 97
[2024-06-28 18:08] LABS: COVID19 ANTIGEN SOFIA FIA NEGATIVE (NEGATIVE); Rapid Influenza A Negative (Negative); Rapid Influenza B Negative (Negative)
[2024-06-28 21:00] VITALS: BP 132/52; PULSE 63; RESP 16; TEMP 98.2; O2SAT 97
[2024-06-29 05:00] VITALS: BP 127/38; PULSE 60; RESP 16; TEMP 97.9; O2SAT 93
[2024-06-29 08:00] VITALS: PULSE 68; RESP 19; O2SAT 96
--- NOTE | 2024-06-29 08:47 | DVHPN2 ---
Reviewed: Care Plan, H&P, Labs, Medications, Previous Orders, Radiology Changes from previous H/P or p: No Changes Eyes: No Pain, No Vision change, No Conjunctivae inflammation, No Eyelid inflammation, No Other, No Redness ENT: No Ear pain, No Ear discharge, No Nose pain, No Nose discharge, No Nose congestion, No Mouth pain, No Mouth swelling, No Throat pain, No Throat swelling, No Other Cardiovascular: No Chest Pain, No Palpitations, No Orthopnea, No Paroxysmal Noc. Dyspnea, No Edema, No Lt Headedness, No Other Respiratory: No Cough, No Dry, No Shortness of breath, No SOB with excertion, No Wheezing, No Hemoptysis, No Pleuritic Pain, No Sputum, No Other Gastrointestinal: Nausea, Vomiting, Abdominal Pain; No Diarrhea, No Constipation, No Melena, No Hematochezia, No Other Genitourinary: No Dysuria, No Frequency, No Incontinence, No Hematuria, No Retention, No Other Musculoskeletal: No other, No neck pain, No shoulder pain, No arm pain, No back pain, No hand pain, No leg pain, No foot pain Skin: No Rash, No Lesions, No Jaundice, No Bruising, No Other Objective Vitals Vital Signs Date Time Temp Pulse Resp B/P (MAP) Pulse Ox O2 Delivery O2 Flow Rate FiO2 06/29/24 05:00 97.9 60 16 127/38 (67) 93 97.9 06/28/24 20:00 Room Air* 0 21 Intake/Output Intake and Output 06/29/24 07:00 Intake Total 2275 ml Balance 2275 ml Intake Oral 1325 ml IV Total 950 ml # Voids 6 Medications Current Medications Medications Dose Ordered Sig/Dilcia Route Start Time Stop Time Status Last Admin Dose Admin Alprazolam 0.25 mg QID PRN PO 06/27/24 16:15 Amlodipine Besylate 2.5 mg DAILY PO 06/28/24 10:00 06/28/24 09:53 2.5 MG Docusate Sodium 100 mg DAILY PO 06/28/24 10:00 06/28/24 09:53 100 MG Empaglifozin 10 mg DAILY PO 06/28/24 10:00 06/28/24 09:54 10 MG Levothyroxine Sodium 25 mcg DAILY@0600 PO 06/28/24 06:00 06/29/24 06:23 25 MCG Losartan Potassium 25 mg DAILY PO 06/28/24 10:00 06/28/24 09:54 25 MG Ranolazine 500 mg BID PO 06/27/24 22:00 06/28/24 22:36 500 MG Atorvastatin Calcium 40 mg HS PO 06/27/24 22:00 06/28/24 20:59 40 MG Carvedilol 25 mg BID PO 06/27/24 22:00 06/28/24 20:59 25 MG Patient Own Medication 1 drop UD EACHEYE 06/27/24 16:15 Hold Mirtazapine 15 mg QPM PO 06/27/24 18:00 06/28/24 18:15 15 MG Patient Own Medication 1 tab BID PO 06/27/24 22:00 06/28/24 22:00 1 TAB Sodium Chloride 1,000 ml @ 100 mls/hr Q10H IV 06/27/24 16:15 06/29/24 06:24 100 MLS/HR Ondansetron HCl 4 mg Q4HP PRN IV 06/27/24 16:15 Morphine Sulfate 2 mg Q4HPRN PRN IV 06/27/24 16:15 Nitroglycerin 0.4 mg Q5MINP PRN SL 06/27/24 16:15 Laboratory Results Laboratory Tests 06/28/24 08:06 Coagulation Test 06/28/24 14:15 D-Dimer, Quantitative 0.67 mg/L FEU (0.0-0.49) H Urinalysis Test 06/27/24 10:37 Urine Color Light-yellow (Yellow) Urine Clarity Clear (Clear) Urine pH 7.0 (5.0-9.0) Urine Specific [place] 1.006 (1.001-1.035) Urine Protein Trace (Negative) H Urine Ketones Negative (Negative) Urine Blood Negative /uL (Negative) Urine Nitrite Negative (Negative) Urine Bilirubin Negative (Negative) Urine Urobilinogen Normal mg/dL (Negative) Urine Leukocyte Esterase Negative /uL (Negative) Urine RBC <1 /hpf (0 - 4) Urine WBC 1 /hpf (0 - 5) Urine Squamous Epithelial Cells Few /hpf (<5) Urine Bacteria None seen /hpf (None Seen) Urine Glucose 4+ mg/dL (Normal) H Labs and/or images reviewed: Labs reviewed by me, Image(s) reviewed by me Assessment/Plan Assessment/Plan Acute generalized weakness Abdominal pain nausea and vomiting GI consult by Dr. High appreciated, CT abdomen pelvis negative Uncontrolled hypertension: Amlodipine History of nonischemic cardiomyopathy : Jardiance Coreg History of TAVR Recurrent falls at home: CT head negative CT pelvis negative Hypercholesterolemia Anxiety: Xanax Type 2 diabetes Hypothyroidism Synthroid, TSH normal Hyponatremia sodium 126 replace sodium improved to 130 Ramya test neg Flu test negative D-dimer negative Time spent 50 minutes Patient lives alone at home, requesting SNF placement for rehab Plan discussed with: Patient My Orders Orders - GABO HERNANDEZ MD Procedure Category Date Status Time Ct Ab Pel Wo Con-No CT 06/28/24 Resulted Oral Or Iv 12:55 * [facility] CONS 06/28/24 Transmitted 12:55 Date of Service: Jun 29, 2024 Billing Provider: GABO HERNANDEZ MD Common Visit Codes: [id number] INP/OBS CARE(HIGH) GABO HERNANDEZ MD Jun 29, 2024 08:47
[2024-06-29 09:00] VITALS: BP 131/52; PULSE 68; RESP 19; TEMP 98.1; O2SAT 96
[2024-06-29 09:59] LABS: Basophils # (auto) 0 10 ^3/uL (0-0.2); Basophils % (auto) 0.3 % (0.0-2.0); Eosinophils # (auto) 0.1 10 ^3/uL (0-0.8); Eosinophils % (auto) 0.7 % (0.0-7.0); Hemoglobin 12.7 g/dL (12.2-16.2); Lymphocytes % (auto) 10.8 % (10.0-50.0); Mean Corpuscular Hemoglobin 32.8 pg (28.0-32.0); Mean Corpuscular Hgb Conc. 34.2 g/dL (32.0-36.0); Mean Corpuscular Volume 95.8 fL (80.0-100.0); Monocytes # (auto) 0.7 10 ^3/uL (0-1.3); Monocytes % (auto) 7.6 % (0.0-12.0); Neutrophils # (auto) 7.4 10 ^3/uL (1.6-8.6); Neutrophils % (auto) 80.6 % (37.0-80.0); Nucleated Red Blood Cells % 0.1 %; Platelet Count (auto) 279 10^3/uL (140-450); Red Blood Cells 3.86 10^6/uL (4.0-5.20); Red Cell Distribution Width 13.3 % (11.8-14.3); White Blood Cell 9.1 10^3/uL (4.4-10.8)
[2024-06-29 10:05] LABS: Alanine Aminotransferase 35 U/L (7-40); Albumin 4.1 g/dL (3.2-4.8); Alkaline Phosphatase 70 U/L (46-116); Anion Gap 5 (5-15); Aspartate Aminotransferase 24 U/L (13-40); BUN/Creatinine Ratio 9.2 (10.0-20.0); Bilirubin, Total 0.3 mg/dL (0.2-1.0); Blood Urea Nitrogen 11 mg/dL (9-23); Calcium 9.4 mg/dL (8.7-10.4); Carbon Dioxide 26 mmol/L (20-31); Chloride 101 mmol/L (98-107); Potassium 4.1 mmol/L (3.5-5.1); Total Protein 6.7 g/dL (5.7-8.2)
[2024-06-29 10:06] LABS: Glucose 146 mg/dL (74-106); Sodium 132 mmol/L (136-145)
[2024-06-29 13:00] VITALS: BP 110/50; PULSE 63; RESP 18; TEMP 97.7; O2SAT 98
[2024-06-29 16:36] VITALS: BP 108/63; PULSE 62; RESP 19; TEMP 97.9; O2SAT 100
--- NOTE | 2024-06-29 20:31 | DVHPN2 ---
Progress Note - Dictate Date Seen: Jun 29, 2024 (Late entryPatient seen at 8:00 a.m.) Medical Necessity Reason Pt with a Central, PICC or Fol: No Subjective Patient seen at bedside, sleeping comfortably There was no further reported nausea vomiting or abdominal pain Patient has not had a bowel movement Patient is tolerating a clear liquid diet vital signs Vital Sign Date Time Temp Pulse Resp B/P (MAP) Pulse Ox O2 Delivery O2 Flow Rate FiO2 06/29/24 16:36 97.9 62 19 108/63 (78) 100 97.9 06/29/24 08:00 Room Air* 0 21 Total Intake and Output 06/28/24 06/28/24 06/29/24 15:00 23:00 07:00 Intake Total 475 ml 1800 ml Balance 475 ml 1800 ml medications Current Medications Medications Dose Ordered Sig/Dilcia Route Start Time Stop Time Status Last Admin Dose Admin Alprazolam 0.25 mg QID PRN PO 06/27/24 16:15 Amlodipine Besylate 2.5 mg DAILY PO 06/28/24 10:00 06/29/24 10:39 2.5 MG Docusate Sodium 100 mg DAILY PO 06/28/24 10:00 06/29/24 10:38 100 MG Empaglifozin 10 mg DAILY PO 06/28/24 10:00 06/29/24 10:00 10 MG Levothyroxine Sodium 25 mcg DAILY@0600 PO 06/28/24 06:00 06/29/24 06:23 25 MCG Losartan Potassium 25 mg DAILY PO 06/28/24 10:00 06/28/24 09:54 25 MG Ranolazine 500 mg BID PO 06/27/24 22:00 06/29/24 10:41 500 MG Atorvastatin Calcium 40 mg HS PO 06/27/24 22:00 06/28/24 20:59 40 MG Carvedilol 25 mg BID PO 06/27/24 22:00 06/29/24 10:41 25 MG Patient Own Medication 1 drop UD EACHEYE 06/27/24 16:15 Hold Mirtazapine 15 mg QPM PO 06/27/24 18:00 06/29/24 17:34 15 MG Patient Own Medication 1 tab BID PO 06/27/24 22:00 06/29/24 10:00 1 TAB Sodium Chloride 1,000 ml @ 100 mls/hr Q10H IV 06/27/24 16:15 06/29/24 18:51 100 MLS/HR Ondansetron HCl 4 mg Q4HP PRN IV 06/27/24 16:15 Morphine Sulfate 2 mg Q4HPRN PRN IV 06/27/24 16:15 Nitroglycerin 0.4 mg Q5MINP PRN SL 06/27/24 16:15 objective General: NAD, AAOX3 Chest: lung velez clear to auscultation Heart: RRR, no murmur Abdomen: non-distended, no tenderness to palpation, +BS laboratory and microbiology Laboratory Tests 06/29/24 09:29 Test 06/29/24 09:29 Range/Units Serum Glucose 146 H 74-106 mg/dL Problems(with codes): (1) Near syncope (2) Generalized weakness (3) Fall from ground level (4) NANDINI (acute kidney injury) (5) Hyponatremia Prognosis Plan Continue supportive care Advance diet as tolerated Protonix 40 mg p.o. daily Zofran as needed for nausea Discharge planning as per hospitalist, tentative plan to SNF Plan discussed with: Other (Nurse and Dr Chava Arshad) TERE DE LA CRUZ MD Jun 29, 2024 20:31
[2024-06-29 21:00] VITALS: BP 143/49; PULSE 66; RESP 18; TEMP 97.9; O2SAT 98
[2024-06-30 05:00] VITALS: BP 114/32; PULSE 63; RESP 16; TEMP 97.7; O2SAT 95
[2024-06-30 09:00] VITALS: BP 144/50; PULSE 72; RESP 18; TEMP 97.9; O2SAT 98
--- NOTE | 2024-06-30 09:38 | DVHPN2 ---
Reviewed: Care Plan, H&P, Labs, Medications, Previous Orders, Radiology Changes from previous H/P or p: No Changes Eyes: No Pain, No Vision change, No Conjunctivae inflammation, No Eyelid inflammation, No Other, No Redness ENT: No Ear pain, No Ear discharge, No Nose pain, No Nose discharge, No Nose congestion, No Mouth pain, No Mouth swelling, No Throat pain, No Throat swelling, No Other Cardiovascular: No Chest Pain, No Palpitations, No Orthopnea, No Paroxysmal Noc. Dyspnea, No Edema, No Lt Headedness, No Other Respiratory: No Cough, No Dry, No Shortness of breath, No SOB with excertion, No Wheezing, No Hemoptysis, No Pleuritic Pain, No Sputum, No Other Gastrointestinal: Nausea, Vomiting, Abdominal Pain; No Diarrhea, No Constipation, No Melena, No Hematochezia, No Other Genitourinary: No Dysuria, No Frequency, No Incontinence, No Hematuria, No Retention, No Other Musculoskeletal: No other, No neck pain, No shoulder pain, No arm pain, No back pain, No hand pain, No leg pain, No foot pain Skin: No Rash, No Lesions, No Jaundice, No Bruising, No Other Objective Vitals Vital Signs Date Time Temp Pulse Resp B/P (MAP) Pulse Ox O2 Delivery O2 Flow Rate FiO2 06/30/24 07:50 Room Air* 0 21 06/30/24 05:00 97.7 63 16 114/32 (59 95 97.7 Intake/Output Intake and Output 06/30/24 07:00 Intake Total 2510 ml Balance 2510 ml Intake Oral 1510 ml IV Total 1000 ml # Voids 6 Medications Current Medications Medications Dose Ordered Sig/Dilcia Route Start Time Stop Time Status Last Admin Dose Admin Alprazolam 0.25 mg QID PRN PO 06/27/24 16:15 Amlodipine Besylate 2.5 mg DAILY PO 06/28/24 10:00 06/29/24 10:39 2.5 MG Docusate Sodium 100 mg DAILY PO 06/28/24 10:00 06/29/24 10:38 100 MG Empaglifozin 10 mg DAILY PO 06/28/24 10:00 06/29/24 10:00 10 MG Levothyroxine Sodium 25 mcg DAILY@0600 PO 06/28/24 06:00 06/30/24 05:45 25 MCG Losartan Potassium 25 mg DAILY PO 06/28/24 10:00 06/28/24 09:54 25 MG Ranolazine 500 mg BID PO 06/27/24 22:00 06/29/24 21:54 500 MG Atorvastatin Calcium 40 mg HS PO 06/27/24 22:00 06/29/24 21:54 40 MG Carvedilol 25 mg BID PO 06/27/24 22:00 06/29/24 22:03 25 MG Patient Own Medication 1 drop UD EACHEYE 06/27/24 16:15 Hold Mirtazapine 15 mg QPM PO 06/27/24 18:00 06/29/24 17:34 15 MG Patient Own Medication 1 tab BID PO 06/27/24 22:00 06/29/24 21:55 1 TAB Sodium Chloride 1,000 ml @ 100 mls/hr Q10H IV 06/27/24 16:15 06/30/24 05:46 100 MLS/HR Ondansetron HCl 4 mg Q4HP PRN IV 06/27/24 16:15 Morphine Sulfate 2 mg Q4HPRN PRN IV 06/27/24 16:15 Nitroglycerin 0.4 mg Q5MINP PRN SL 06/27/24 16:15 Laboratory Results Laboratory Tests 06/29/24 09:29 Urinalysis Test 06/27/24 10:37 Urine Color Light-yellow (Yellow) Urine Clarity Clear (Clear) Urine pH 7.0 (5.0-9.0) Urine Specific [place] 1.006 (1.001-1.035) Urine Protein Trace (Negative) H Urine Ketones Negative (Negative) Urine Blood Negative /uL (Negative) Urine Nitrite Negative (Negative) Urine Bilirubin Negative (Negative) Urine Urobilinogen Normal mg/dL (Negative) Urine Leukocyte Esterase Negative /uL (Negative) Urine RBC <1 /hpf (0 - 4) Urine WBC 1 /hpf (0 - 5) Urine Squamous Epithelial Cells Few /hpf (<5) Urine Bacteria None seen /hpf (None Seen) Urine Glucose 4+ mg/dL (Normal) H Labs and/or images reviewed: Labs reviewed by me, Image(s) reviewed by me Assessment/Plan Assessment/Plan Acute generalized weakness Abdominal pain nausea and vomiting GI consult by Dr. High appreciated, CT abdomen pelvis negative pantoprazole Uncontrolled hypertension: Amlodipine History of nonischemic cardiomyopathy : Jardiance Coreg History of TAVR Recurrent falls at home: CT head negative CT pelvis negative Hypercholesterolemia Anxiety: Xanax Type 2 diabetes Hypothyroidism Synthroid, TSH normal Hyponatremia sodium 126 replace sodium improved to 130 Ramya test neg Flu test negative D-dimer negative Time spent 50 minutes Patient lives alone at home, requesting SNF placement for rehab Plan discussed with: Patient Date of Service: Jun 30, 2024 Billing Provider: GABO HERNANDEZ MD Common Visit Codes: [id number] INP/OBS CARE(HIGH) GABO HERNANDEZ MD Jun 30, 2024 09:38
--- NOTE | 2024-06-30 09:41 | DVHDS2 ---
Discharge Summary Date of Admission Jun 27, 2024 at 16:03 Date of Discharge: Jun 30, 2024 Admitting Diagnosis Abdominal pain nausea vomiting recurrent falls Wounds: None Labs/Diagnostic Data: Laboratory Results Test 06/29/24 09:29 06/28/24 16:42 06/28/24 14:15 06/28/24 08:06 White Blood Count 9.1 10^3/uL (4.4-10.8) Red Blood Count 3.86 10^6/uL (4.0-5.20) Hemoglobin 12.7 g/dL (12.2-16.2) Hematocrit 37.0 % (36.0-46.0) Mean Corpuscular Volume 95.8 fL (80.0-100.0) Mean Corpuscular Hemoglobin 32.8 pg (28.0-32.0) Mean Corpuscular Hemoglobin Concent 34.2 g/dL (32.0-36.0) Red Cell Distribution Width 13.3 % (11.8-14.3) Platelet Count 279 10^3/uL (140-450) Mean Platelet Volume 7.7 fL (6.9-10.8) Neutrophils (%) (Auto) 80.6 % (37.0-80.0) Lymphocytes (%) (Auto) 10.8 % (10.0-50.0) Monocytes (%) (Auto) 7.6 % (0.0-12.0) Eosinophils (%) (Auto) 0.7 % (0.0-7.0) Basophils (%) (Auto) 0.3 % (0.0-2.0) Neutrophils # (Auto) 7.4 10 ^3/uL (1.6-8.6) Lymphocytes # (Auto) 1.0 10 ^3/uL (0.4-5.4) Monocytes # (Auto) 0.7 10 ^3/uL (0-1.3) Eosinophils # (Auto) 0.1 10 ^3/uL (0-0.8) Basophils # (Auto) 0 10 ^3/uL (0-0.2) Nucleated Red Blood Cells 0.1 % Sodium Level 132 mmol/L (136-145) Potassium Level 4.1 mmol/L (3.5-5.1) Chloride Level 101 mmol/L (98-107) Carbon Dioxide Level 26 mmol/L (20-31) Anion Gap 5 (5-15) Blood Urea Nitrogen 11 mg/dL (9-23) Creatinine 1.20 mg/dL (0.550-1.02) Glomerular Filtration Rate Calc 44 mL/min (>90) BUN/Creatinine Ratio 9.2 (10.0-20.0) Serum Glucose 146 mg/dL (74-106) Calcium Level 9.4 mg/dL (8.7-10.4) Total Bilirubin 0.3 mg/dL (0.2-1.0) Aspartate Amino Transferase (AST) 24 U/L (13-40) Alanine Aminotransferase (ALT) 35 U/L (7-40) Alkaline Phosphatase 70 U/L (46-116) Total Protein 6.7 g/dL (5.7-8.2) Albumin 4.1 g/dL (3.2-4.8) Influenza Type A Antigen Negative (Negative) Influenza Type B Antigen Negative (Negative) SARS-CoV-2 Antigen (Rapid) Negative (NEGATIVE) D-Dimer, Quantitative 0.67 mg/L FEU (0.0-0.49) Lipase 18 U/L (12-53) Test 06/27/24 17:00 06/27/24 10:37 Prothrombin Time 11.4 sec (9.3-11.8) Prothrombin Time INR 1.08 (0.9-1.15) Thyroid Stimulating Hormone (TSH) 3.48 uIU/mL (0.55-4.78) Urine Color Light-yellow (Yellow) Urine Clarity Clear (Clear) Urine pH 7.0 (5.0-9.0) Urine Specific [place] 1.006 (1.001-1.035) Urine Protein Trace (Negative) Urine Ketones Negative (Negative) Urine Blood Negative /uL (Negative) Urine Nitrite Negative (Negative) Urine Bilirubin Negative (Negative) Urine Urobilinogen Normal mg/dL (Negative) Urine Leukocyte Esterase Negative /uL (Negative) Urine RBC <1 /hpf (0 - 4) Urine WBC 1 /hpf (0 - 5) Urine Squamous Epithelial Cells Few /hpf (<5) Urine Bacteria None seen /hpf (None Seen) Urine Glucose 4+ mg/dL (Normal) Other Laboratory Tests 06/29/24 09:29 Brief Hx & Hospital Course: 58-year-old female with a history of hypertension hypercholesterolemia diabetes hypothyroidism TAVR nonischemic cardiomyopathy recurrent falls at home admitted for generalized weakness also complained of abdominal pain with nausea and vomiting GI consult by Dr. High CT abdomen pelvis without contrast negative placed on pantoprazole uncontrolled hypertension controlled with the amlodipine patient was placed on Jardiance and Coreg for nonischemic cardiomyopathy also history of TAVR patient has been falling recurrent at home CT head negative CT pelvis negative. TSH is normal placed back on Synthroid acute hyponatremia sodium 126 resolved with IV fluids. Ramya test negative flu test negative D- dimer negative Patient being discharged to care home facility for physical therapy. Consults/Reason for consult Nephrology GI Operations or Procedures CT head Condition at Discharge: Fair Final Diagnosis/Problems List Acute generalized weakness Abdominal pain nausea and vomiting GI consult by Dr. Lennox fierro, CT abdomen pelvis negative pantoprazole Uncontrolled hypertension: Amlodipine History of nonischemic cardiomyopathy : Jardiance Coreg History of TAVR Recurrent falls at home: CT head negative CT pelvis negative Hypercholesterolemia Anxiety: Xanax Type 2 diabetes Hypothyroidism Synthroid, TSH normal Hyponatremia sodium 126 replace sodium improved to 130 Ramya test neg Flu test negative D-dimer negative Discharge Disposition: [facility] Facility Discharge Instruct/Medications Diet: Cardiac 2g Na,low cholest Activity: Light activity Follow Up/Referral: Follow up with the assisted Medications: See list 39 (Time Taken for discharge summary 39 minutes) Discharge Statement: "Patient was advised to return to the ER or call 911 if any headaches, dizziness, shortness of breath, chest pain, abdominal pain, bleeding, fevers, or worsening of medical condition. Patient was counseled about treatment plan, medications, possible side effects, patientverbalized understanding. All questions were answered to the best of my ability. This discharge took greater then 30 minutes in planning, reviewing documentation, counseling the patient, and discussing with other team members." ASSESSMENT ASSESSMENT Hospital Course Improved Assessment Acute generalized weakness Abdominal pain nausea and vomiting GI consult by Dr. Lennox fierro, CT abdomen pelvis negative pantoprazole Uncontrolled hypertension: Amlodipine History of nonischemic cardiomyopathy : Jardiance Coreg History of TAVR Recurrent falls at home: CT head negative CT pelvis negative Hypercholesterolemia Anxiety: Xanax Type 2 diabetes Hypothyroidism Synthroid, TSH normal Hyponatremia sodium 126 replace sodium improved to 130 Ramya test neg Flu test negative D-dimer negative Date of Service: Jun 30, 2024 Billing Provider: GABO HERNANDEZ MD Common Visit Codes: 80043-ZMV/OBS DISCH DAY >30min GABO HERNANDEZ MD Jun 30, 2024 09:41
[2024-06-30 12:25] VITALS: BP 131/40; PULSE 66; RESP 18; TEMP 98.4; O2SAT 98
--- NOTE | 2024-06-30 12:35 | DVHPN2 ---
Progress Note - Dictate Date Seen: Jun 30, 2024 Medical Necessity Reason Pt with a Central, PICC or Fol: No Subjective No new complaints There was no further reported nausea vomiting or abdominal pain Patient has not had a bowel movement Patient is tolerating a mechanical soft diet vital signs Vital Sign Date Time Temp Pulse Resp B/P (MAP) Pulse Ox O2 Delivery O2 Flow Rate FiO2 06/30/24 12:25 98.4 66 18 131/40 (70) 98 98.4 06/30/24 07:50 Room Air* 0 21 Total Intake and Output 06/29/24 06/29/24 06/30/24 15:00 23:00 07:00 Intake Total 1860 ml 650 ml Balance 1860 ml 650 ml medications Current Medications Medications Dose Ordered Sig/Dilcia Route Start Time Stop Time Status Last Admin Dose Admin Alprazolam 0.25 mg QID PRN PO 06/27/24 16:15 Amlodipine Besylate 2.5 mg DAILY PO 06/28/24 10:00 06/30/24 10:03 2.5 MG Docusate Sodium 100 mg DAILY PO 06/28/24 10:00 06/30/24 10:01 100 MG Empaglifozin 10 mg DAILY PO 06/28/24 10:00 06/30/24 10:01 10 MG Levothyroxine Sodium 25 mcg DAILY@0600 PO 06/28/24 06:00 06/30/24 05:45 25 MCG Losartan Potassium 25 mg DAILY PO 06/28/24 10:00 06/30/24 10:02 25 MG Ranolazine 500 mg BID PO 06/27/24 22:00 06/30/24 10:01 500 MG Atorvastatin Calcium 40 mg HS PO 06/27/24 22:00 06/29/24 21:54 40 MG Carvedilol 25 mg BID PO 06/27/24 22:00 06/30/24 10:02 25 MG Patient Own Medication 1 drop UD EACHEYE 06/27/24 16:15 Hold Mirtazapine 15 mg QPM PO 06/27/24 18:00 06/29/24 17:34 15 MG Patient Own Medication 1 tab BID PO 06/27/24 22:00 06/30/24 10:01 1 TAB Sodium Chloride 1,000 ml @ 100 mls/hr Q10H IV 06/27/24 16:15 06/30/24 05:46 100 MLS/HR Ondansetron HCl 4 mg Q4HP PRN IV 06/27/24 16:15 Morphine Sulfate 2 mg Q4HPRN PRN IV 06/27/24 16:15 Nitroglycerin 0.4 mg Q5MINP PRN SL 06/27/24 16:15 objective General: NAD, AAOX3 Chest: lung velez clear to auscultation Heart: RRR, no murmur Abdomen: non-distended, no tenderness to palpation, +BS laboratory and microbiology Laboratory Tests 06/29/24 09:29 Test 06/29/24 09:29 Range/Units Serum Glucose 146 H 74-106 mg/dL Problems(with codes): (1) NANDINI (acute kidney injury) (2) Hyponatremia (3) Fall from ground level (4) Near syncope (5) Generalized weakness (6) Autonomic dysfunction (7) Pelvic pain (8) Constipation Prognosis Assessment plan If patient does not have bowel movement after advancing a diet and using stool softeners then we will consider giving her a dose of MiraLax Discharge planning is in progress to SNF Outpatient follow up with GI Services as needed Plan discussed with: Other (Dr Chava brannon) TERE DE LA CRUZ MD Jun 30, 2024 12:35
[2024-06-30 16:06] VITALS: BP 114/28; PULSE 66; RESP 18; TEMP 98.4; O2SAT 98
== END 2024-06-30 17:16 | DRG 640 ==
LOC: EDBD 09:15 → ER 09:15 → EDUNIT# 09:15 → OVERFLOW 16:03 → EAST 23:29
PROVIDERS: ADMIT Nurse Practitioner Family; ATTEND Family Medicine
DX: E86.0 Dehydration (principal); N17.0 Acute kidney failure with tubular necrosis; E87.1 Hypo-osmolality and hyponatremia; A08.4 Viral intestinal infection, unspecified; G90.89 Other disorders of autonomic nervous system; E03.9 Hypothyroidism, unspecified; E78.00 Pure hypercholesterolemia, unspecified; F41.9 Anxiety disorder, unspecified; I10 Essential (primary) hypertension; I25.10 Atherosclerotic heart disease of native coronary artery without angina pectoris; K59.00 Constipation, unspecified; Z79.899 Other long term (current) drug therapy; Z90.49 Acquired absence of other specified parts of digestive tract; Z95.2 Presence of prosthetic heart valve; W18.39XA Other fall on same level, initial encounter; Y93.89 Activity, other specified; Y92.89 Other specified places as the place of occurrence of the external cause; Y99.8 Other external cause status
CPT/HCPCS: 36415; 70450; 72192; 74176; 80048; 80053; 81001; 83690; 84443; 85025; 85379; 85610; 87426; 87804; 93005; 96360; 97163; 99291; G0378

== ENCOUNTER 2024-09-18 11:53 | Emergency (ER) | payer OTHER, MEDICAID ==
[~2024-09-18] VITALS: Ht 157.5 cm; Wt 65.0 kg
[~2024-09-18 11:53] MED LIST changes: -CLOP75TA28 PO; -CYA100I IM; +HYDR25TA5 PO; -LEVO500T91 PO; -MELO15TA29 PO; -PANT40TA2 PO
--- NOTE | 2024-09-18 12:14 | ED.PDOC ---
History of Present Illness HPI Comments 84-year-old female who comes in with chief complaint of left hip pain as well as bilateral knee pain. 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 This occurred approximately 45 minutes prior to arrival. The patient now comes in with EMS complaining of the left hip as well as bilateral knee pain. The patient has no other complaints at this time. There was no syncope or head trauma. Time Seen by MD: 12:00 Reviewed Notes: Nurses Notes, Fire Prevention Inspector Notes, Medications, Allergies (No allergies to medication) Allergies: Coded Allergies: NO KNOWN ALLERGIES (Unverified , 09/18/24) Information Source: Patient, Emergency Med Personnel Mode of Arrival: EMS Severity: Moderate Timing: Minutes (45 minutes prior to arrival) Duration: Since onset Prehospital treatment: None Location: Left hip and bilateral knee pain Past Medical History PAST MEDICAL HISTORY: Arthritis, DM, High Lipids, HTN Surgical History: Cholecystectomy Surgical History (Other): Valvular surgery STEPDOWN NURSE History: No Pertinent STEPDOWN NURSE History Family History Family History: No family hx of Cancer, No family hx of DM, No family hx of Heart [place] Social History Smoker: Non-Smoker Alcohol: Denies ETOH Use Drugs: Denies Drug Use Lives In: Home Constitutional: denies: chills, diaphoresis, fatigue, fever, malaise, sweats, weakness, others EENTM: denies: blurred vision, double vision, ear bleeding, ear discharge, ear drainage, ear pain, ear ringing, eye pain, eye redness, hearing loss, mouth pain, mouth swelling, nasal discharge, nose bleeding, nose congestion, nose pain, photophobia, tearing, throat pain, throat swelling, voice changes, others Respiratory: denies: cough, hemoptysis, orthopnea, SOB at rest, shortness of breath, SOB with excertion, stridor, wheezing, others Cardiovascular: denies: chest pain, dizzy spells, diaphoresis, Dyspnea on exertion, edema, irregular heart beat, left arm pain, lightheadedness, pa lpitations, PND, syncope, others Gastrointestinal: denies: abdomen distended, abdominal pain, blood streaked bowels, constipated, diarrhea, dysphagia, difficulty swallowing, hematemesis, melena, nausea, poor appetite, poor fluid intake, rectal bleeding, rectal pain, vomiting, others Genitourinary: denies: abnormal vagina bleeding, burning, dyspareunia, dysuria, flank pain, frequency, hematuria, incontinence, pain, , vagina discharge, urgency, others Neurological: denies: dizziness, fainting, headache, left sided numbness, left sided weakness, numbness, paresthesia, pre-existing deficit, right sided numbness, right sided weakness, seizure, speech problems, tingling, tremors, weakness, others Musculoskeletal: denies: back pain, gout, joint pain, joint swelling, muscle pain, muscle stiffness, neck pain, others Integumetry: reports: others (Left hip pain as well as bilateral knee pain); denies: bruises, change in color, change in hair/nails, dryness, laceration, lesions, lumps, rash, wounds Allergic/Immunocompromised: denies: Difficulty Healing, Frequent Infections, Hives, Itching, others Hematologic/Lymphatic: denies: anemia, blood clots, easy bleeding, easy bruising, swollen glands, others Endocrine: denies: excessive hunger, excessive sweating, excessive thirst, excessive urination, flushing, intolerance to cold, intolerance to heat, unexplained weight gain, unexplained weight loss, others Psychiatric: denies: anxiety, bipolar disorder, depression, hopeless, panic disorder, schizophrenia, sleepless, suicidal, others Physical Exam General Appearance: No Apparent Distress HEENT: Normal ENT Inspection, Pharynx Normal, TMs Normal Neck: Full Range of Motion, Non-Tender, Normal, Normal Inspection Respiratory: Chest Non-Tender, Lungs Clear, No Accessory Muscle Use, No Respiratory Distress, Normal Breath Sounds Cardiovascular: No Edema, No JVD, No Murmur, No Gallop, Normal Peripheral Pulses, Regular Rate/Rhythm Breast Exam: Deferred Gastrointestinal: No Organomegaly, Non Tender, No Pulsatile Mass, Normal Bowel Sounds, Soft Genitalia: Deferred Pelvic: Deferred Rectal: Deferred Extremities: No calf tenderness, Normal capillary refill, No pedal edema Musculoskeletal : Location: Left Extremity Location: Hip, Knee Apperance: Limited ROM, Tenderness: Mild Neurologic: Alert, parcel post clerk II-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 Was a procedure done?: No Differential Dx Considerations may include: Fracture, strain X-Ray, Labs, Meds, VS EXAM: XY R KNEE 3V XRAY IMPRESSION: 1. No acute fracture or dislocation in the right knee. 2. Osteoarthritis. EXAM: XY L KNEE 3V XRAY IMPRESSION: 1. Subacute appearing patellar fracture. 2. Total knee replacement with intact hardware and no abnormal alignment. PROCEDURE(s): LHIP - L HIP COMPLETE XRAY IMPRESSION: 1. No fracture or dislocation. At this time, the patient will be discharged and will follow up with the primary care doctor The patient will return to the emergency department's condition worsens Images Reviewed?: Images reviewed and evaluated by me Time of 1ST Reevaluation: 12:30 Reevaluation 1ST: Unchanged Patient Education/Counseling: Diagnosis, Treatment, Prognosis, Need For Follow Up Family Education/Counseling: No Family Present Departure 1 Departure Time of Disposition: 13:54 Impression: Primary Impression: History of fall Additional Impressions: Contusion of left hip Qualified Codes: S70.02XA - Contusion of left hip, initial encounter Patella fracture Qualified Codes: S82.009S - Unspecified fracture of unspecified patella, sequela Disposition: 01 HOME / SELF CARE / HOMELESS Condition: Fair Discharged With: Self Critical Care Note Critical Care Time?: No Stability Stability form required: No Heart Score Heart Score: Heart Score Response (Comments) Value History N/A 0 EKG N/A 0 Age N/A 0 Risk Factors N/A 0 Troponin N/A 0 Total 0 I personally scribed for JUAN FRANCISCO RDZ MD ([email or web address]) on 09/18/24 at 13:38. Electronically submitted by Sonya CUTLER). JUAN FRANCISCO RDZ MD Sep 18, 2024 12:14
--- NOTE | 2024-09-18 13:25 | DVH ---
EXAM: XY R KNEE 3V XRAY HISTORY: fall COMPARISON: None TECHNIQUE: 3 views of the right knee were performed. FINDINGS: No acute fracture is identified about the right knee. There is medial and lateral compartment joint space narrowing. There are tricompartment osteophytes. Joint effusion noted. IMPRESSION: 1. No acute fracture or dislocation in the right knee. 2. Osteoarthritis. HS:Y
--- NOTE | 2024-09-18 13:27 | DVH ---
EXAM: XY L KNEE 3V XRAY HISTORY: fall COMPARISON: None TECHNIQUE: 3 views of the left knee were performed. FINDINGS: No acute fracture is identified about the left knee. There is a total knee replacement. The hardware is intact. The components are well aligned and well seated. There is transverse lucency in the mendi[place] la compatible with fracture. There is bony proliferative change along the anterior fracture margin brito ggestive of a subacute fracture. IMPRESSION: 1. Subacute appearing patellar fracture. 2. Total knee replacement with intact hardware and no abnormal alignment. HS:Y
--- NOTE | 2024-09-18 13:27 | DVH ---
PROCEDURE: Left hip radiographs. INDICATION: Fall TECHNIQUE: Frontal and lateral views of the left hip were obtained. COMPARISON: None FINDINGS: There is no evidence of fracture or dislocation. Joint spaces are maintained. The soft tis sues are unremarkable. IMPRESSION: 1. No fracture or dislocation. HS:Y
[2024-09-18 15:20] VITALS: BP 119/80; PULSE 78; RESP 18; TEMP 98.2; O2SAT 98
== END 2024-09-18 15:42 | disposition home or self-care (01) ==
LOC: ER 11:53 → EDUNIT# 11:53 → EDBD 11:53 → ER 15:42
DX: S82.002A Unspecified fracture of left patella, initial encounter for closed fracture (principal); S70.02XA Contusion of left hip, initial encounter; I10 Essential (primary) hypertension; E11.9 Type 2 diabetes mellitus without complications; E78.5 Hyperlipidemia, unspecified; Z90.49 Acquired absence of other specified parts of digestive tract; Z96.653 Presence of artificial knee joint, bilateral; W18.39XA Other fall on same level, initial encounter; Y93.89 Activity, other specified; Y92.89 Other specified places as the place of occurrence of the external cause; Y99.8 Other external cause status
CPT/HCPCS: 73502; 73562

== ENCOUNTER 2024-11-26 12:02 | Inpatient (IN) | payer OTHER, MEDICAID ==
[~2024-11-26] VITALS: Ht 157.5 cm; Wt 73.8 kg
[~2024-11-26 12:02] MED LIST changes: +ATOR20TA50 PO; +DONE5TAB80 PO; +MELO15TA29 PO; +POTA-228 PO
--- NOTE | 2024-11-26 12:21 | ED.PDOC ---
History of Present Illness HPI Comments 84-year-old female came to the ER stating that she has been having chest pain along with loss of appetite since yesterday. Chest pain radiating to the left shoulder. She does use a cane to help her walk. History of hypertension. She states that she does have a history of coronary artery disease does not remember having any angiogram or workup for the coronary artery disease. Denies any other symptoms. Time Seen by MD: 12:05 Primary Care Provider: HEBERT Reviewed Notes: Nurses Notes, Medications, Allergies Allergies: Coded Allergies: No Known Drug Allergy (Verified Allergy, Unknown, 07/08/21) Home Meds Active Scripts Losartan Potassium (Losartan Potassium) 25 Mg Tab, 25 MG PO DAILY for 30 Days, #30 MG 2 Refills Prov:MECHELLE SAMUEL DO 01/07/23 Reported Medications Hctz (Hydrochlorothiazide) 25 Mg Tab, 1 TAB PO QAM 06/28/24 Cyclosporine (Ophth) (Restasis) 0.05 % Emu, 1 DROP EACHEYE UD for 28 Days, #5.5 3 Refills Instill 1 drop into affected eye as directed. 02/29/24 Empagliflozin (Jardiance) 10 Mg Tab, 1 TAB PO DAILY for 30 Days, #30 02/29/24 Sacubitril-Valsartan (Entresto 49-51 mg) 1 Tab Tab, 1 TAB PO BID for 90 Days, #180 02/29/24 Ranolazine (Ranolazine ER) 500 Mg Tab, 1 TAB PO BID for 90 Days, #180 02/29/24 Levothyroxine Sodium (Levothyroxine Sodium) 25 Mcg Tab, 1 TAB PO DAILY for 90 Days, #90 02/29/24 Carvedilol (Carvedilol) 25 Mg Tab, 1 TAB PO BID for 90 Days, #180 02/29/24 Aspirin (Aspir-Low) 81 Mg Tab, 1 TAB PO DAILY for 30 Days, #30 02/29/24 Amlodipine Besylate (Amlodipine Besylate) 5 Mg Tab, 2.5 MG PO DAILY for 90 Days, #90 02/29/24 Mirtazapine (Mirtazapine Oral Disintegrating Tablet) 15 Mg Tab, 1 TAB PO QPM for 90 Days, #90 01/05/23 Atorvastatin Calcium (ATORVASTATIN CALCIUM) 40 Mg Tab, 1 TAB PO HS for 90 Days, #90 01/05/23 Docusate Sodium (Colace) 100 Mg Cap, 1 CAP PO DAILY for 90 Days, #90 04/02/17 Alprazolam (Alprazolam) 0.25 Mg Tab, 0.25 MG PO PRN for ANXIETY, TAB 04/02/17 Information Source: Patient Mode of Arrival: Wheelchair Severity: Moderate Timing: Days Duration: Since onset Past Medical History PAST MEDICAL HISTORY: Arthritis, DM, High Lipids, HTN Surgical History: Cholecystectomy GUIDANCE COUNSELOR History: No Pertinent GUIDANCE COUNSELOR History Family History Family History: No family hx of Cancer, No family hx of DM, No family hx of Heart apollo Social History Smoker: Non-Smoker Alcohol: Denies ETOH Use Drugs: Denies Drug Use Lives In: Home Constitutional: denies: chills, diaphoresis, fatigue, fever, malaise, sweats, weakness, others EENTM: denies: blurred vision, double vision, ear bleeding, ear discharge, ear drainage, ear pain, ear ringing, eye pain, eye redness, hearing loss, mouth pain, mouth swelling, nasal discharge, nose bleeding, nose congestion, nose pain, photophobia, tearing, throat pain, throat swelling, voice changes, others Respiratory: denies: cough, hemoptysis, orthopnea, SOB at rest, shortness of breath, SOB with excertion, stridor, wheezing, others Cardiovascular: reports: chest pain; denies: dizzy spells, diaphoresis, Dyspnea on exertion, edema, irregular heart beat, left arm pain, lightheadedness, palpitations, PND, syncope, others Gastrointestinal: denies: abdomen distended, abdominal pain, blood streaked bowels, constipated, diarrhea, dysphagia, difficulty swallowing, hematemesis, melena, nausea, poor appetite, poor fluid intake, rectal bleeding, rectal pain, vomiting, others Genitourinary: denies: abnormal vagina bleeding, burning, dyspareunia, dysuria, flank pain, frequency, hematuria, incontinence, pain, , vagina discharge, urgency, others Neurological: denies: dizziness, fainting, headache, left sided numbness, left sided weakness, numbness, paresthesia, pre-existing deficit, right sided numbness, right sided weakness, seizure, speech problems, tingling, tremors, weakness, others Musculoskeletal: denies: back pain, gout, joint pain, joint swelling, muscle pain, muscle stiffness, neck pain, others Integumetry: denies: bruises, change in color, change in hair/nails, dryness, laceration, lesions, lumps, rash, wounds, others Allergic/Immunocompromised: denies: Difficulty Healing, Frequent Infections, Hives, Itching, others Hematologic/Lymphatic: denies: anemia, blood clots, easy bleeding, easy bruising, swollen glands, others Endocrine: denies: excessive hunger, excessive sweating, excessive thirst, excessive urination, flushing, intolerance to cold, intolerance to heat, unexplained weight gain, unexplained weight loss, others Psychiatric: denies: anxiety, bipolar disorder, depression, hopeless, panic disorder, schizophrenia, sleepless, suicidal, others Physical Exam General Appearance: Moderate Distress HEENT: Normal ENT Inspection, Pharynx Normal, TMs Normal Neck: Full Range of Motion, Non-Tender, Normal, Normal Inspection Respiratory: Chest Non-Tender, Lungs Clear, No Accessory Muscle Use, No Res piratory Distress, Normal Breath Sounds Cardiovascular: No Edema, No JVD, No Murmur, No Gallop, Normal Peripheral Pulses, Regular Rate/Rhythm Breast Exam: Deferred Gastrointestinal: No Organomegaly, Non Tender, No Pulsatile Mass, Normal Bowel Sounds, Soft Genitalia: Deferred Pelvic: Deferred Rectal: Deferred Extremities: No calf tenderness, Normal capillary refill, Normal inspection, Normal range of motion, Non-tender, No pedal edema Musculoskeletal : Apperance: Normal Neurologic: Alert, circulating process inspector II-XII nml as Tested, No Motor Deficits, Normal Affect, Normal Mood, No Sensory Deficits Cerebellar Function: NOT DONE Reflexes: NOT DONE Skin: Dry, Normal Color, Warm Peripheral Pulses: 3+ Radial (R), 3+ Radial (L) Lymphatic: No Adenopathy Was a procedure done? Was a procedure done?: No EKG EKG : Pulse Rate (adult): 74 Block: LBBB Differential Dx Considerations may include: Chest pain Electrolyte imbalance X-Ray, Labs, Meds, VS Vital Signs Date Time Temp Pulse Resp B/P (MAP) Pulse Ox O2 Delivery O2 Flow Rate FiO2 11/26/24 13:11 68 11/26/24 12:38 97.8 73 18 164/63 (96) 97 97.8 11/26/24 12:20 74 11/26/24 12:09 74 Lab Test 11/26/24 13:39 11/26/24 12:15 Range/Units Troponin I High Sensitivity 5 4 </=34 ng/L White Blood Count 5.0 4.4-10.8 10^3/uL Red Blood Count 3.96 L 4.0-5.20 10^6/uL Hemoglobin 12.5 12.2-16.2 g/dL Hematocrit 37.1 36.0-46.0 % Mean Corpuscular Volume 93.6 80.0-100.0 fL Mean Corpuscular Hemoglobin 31.6 28.0-32.0 pg Mean Corpuscular Hemoglobin Concent 33.7 32.0-36.0 g/dL Red Cell Distribution Width 13.2 11.8-14.3 % Platelet Count 318 140-450 10^3/uL Mean Platelet Volume 7.3 6.9-10.8 fL Neutrophils (%) (Auto) 65.3 37.0-80.0 % Lymphocytes (%) (Auto) 21.5 10.0-50.0 % Monocytes (%) (Auto) 11.7 0.0-12.0 % Eosinophils (%) (Auto) 1.0 0.0-7.0 % Basophils (%) (Auto) 0.5 0.0-2.0 % Neutrophils # (Auto) 3.3 1.6-8.6 10 ^3/uL Lymphocytes # (Auto) 1.1 0.4-5.4 10 ^3/uL Monocytes # (Auto) 0.6 0-1.3 10 ^3/uL Eosinophils # (Auto) 0 0-0.8 10 ^3/uL Basophils # (Auto) 0 0-0.2 10 ^3/uL Nucleated Red Blood Cells 0.0 % Prothrombin Time 10.9 9.3-11.8 sec Prothrombin Time INR 1.03 0.9-1.15 Activated Partial Thromboplast Time 27.6 24.5-34.5 SEC Sodium Level 134 L 136-145 mmol/L Potassium Level 4.5 3.5-5.1 mmol/L Chloride Level 101 98-107 mmol/L Carbon Dioxide Level 25 20-31 mmol/L Anion Gap 8 5-15 Blood Urea Nitrogen 18 9-23 mg/dL Creatinine 1.27 H 0.550-1.02 mg/dL Glomerular Filtration Rate Calc 41 >90 mL/min BUN/Creatinine Ratio 14.2 10.0-20.0 Serum Glucose 145 H 74-106 mg/dL Hemoglobin A1c 5.5 <5.7 % A1C Calcium Level 10.0 8.7-10.4 mg/dL Magnesium Level 2.1 1.6-2.6 mg/dL Total Bilirubin 0.3 0.2-1.0 mg/dL Aspartate Amino Transferase (AST) 17 13-40 U/L Alanine Aminotransferase (ALT) 19 7-40 U/L Alkaline Phosphatase 71 46-116 U/L B-Type Natriuretic Peptide 45.16 0-100 pg/mL Total Protein 7.1 5.7-8.2 g/dL Albumin 4.5 3.2-4.8 g/dL Vitamin B12 Level > 4000 H 211-911 pg/mL Vitamin D 25-Hydroxy 71.7 30.0-100 ng/mL Thyroid Stimulating Hormone (TSH) 0.11 L 0.55-4.78 uIU/mL Patient alert. Complaining of chest pain. EKG does show left bundle branch block. Was given aspirin. Was given an nitro. Continues to have chest pain. Has risk factors for coronary artery disease. Continue cardiac monitoring. Time of 1ST Reevaluation: 12:19 Reevaluation 1ST: Unchanged Patient Education/Counseling: Diagnosis, Treatment, Prognosis Family Education/Counseling: No Family Present Departure 1 Departure Time of Disposition: 12:20 Impression: Primary Impression: Chest pain of unknown etiology Additional Impression: Uncontrolled hypertension Disposition: ADMITTED INPATIENT Admit to: Med Surg Condition: Guarded Critical Care Note Critical Care Time?: Yes (90 min-critical care time only) Critical care comment: Continues to have chest pain cardiology consultation Stability Stability form required: No Heart Score Heart Score: Heart Score Response (Comments) Value History Slightly Suspicious 0 EKG Normal 0 Age >65 2 Risk Factors >3 or Hx ASHD 2 Troponin Normal limit 0 Total 4 FAUSTINO FAM MD November 26, 2024 12:20
[2024-11-26 12:27] LABS: Basophils # (auto) 0 10 ^3/uL (0-0.2); Basophils % (auto) 0.5 % (0.0-2.0); Eosinophils # (auto) 0 10 ^3/uL (0-0.8); Hematocrit 37.1 % (36.0-46.0); Hemoglobin 12.5 g/dL (12.2-16.2); Lymphocytes # (auto) 1.1 10 ^3/uL (0.4-5.4); Lymphocytes % (auto) 21.5 % (10.0-50.0); Mean Corpuscular Hemoglobin 31.6 pg (28.0-32.0); Mean Corpuscular Hgb Conc. 33.7 g/dL (32.0-36.0); Mean Corpuscular Volume 93.6 fL (80.0-100.0); Monocytes # (auto) 0.6 10 ^3/uL (0-1.3); Monocytes % (auto) 11.7 % (0.0-12.0); Neutrophils # (auto) 3.3 10 ^3/uL (1.6-8.6); Neutrophils % (auto) 65.3 % (37.0-80.0); Platelet Count (auto) 318 10^3/uL (140-450); Red Blood Cells 3.96 10^6/uL (4.0-5.20); Red Cell Distribution Width 13.2 % (11.8-14.3)
[2024-11-26 12:41] LABS: Alanine Aminotransferase 19 U/L (7-40); Albumin 4.5 g/dL (3.2-4.8); Alkaline Phosphatase 71 U/L (46-116); Anion Gap 8 (5-15); Aspartate Aminotransferase 17 U/L (13-40); BUN/Creatinine Ratio 14.2 (10.0-20.0); Blood Urea Nitrogen 18 mg/dL (9-23); Carbon Dioxide 25 mmol/L (20-31); Chloride 101 mmol/L (98-107); Magnesium 2.2 mg/dL (1.6-2.6); Potassium 4.5 mmol/L (3.5-5.1); Total Protein 7.1 g/dL (5.7-8.2)
[2024-11-26 12:42] LABS: Bilirubin, Total 0.3 mg/dL (0.2-1.0); Glucose 145 mg/dL (74-106); Sodium 134 mmol/L (136-145)
[2024-11-26 12:49] LABS: INR 1.03 (0.9-1.15); Partial Thromboplastin Time 27.6 SEC (24.5-34.5); Prothrombin Time 10.9 sec (9.3-11.8)
--- NOTE | 2024-11-26 12:54 | DVH ---
EXAM: XY CHEST PORTABLE Indication: CP Technique: Single frontal view of the chest was obtained Comparison: XY CHEST PORTABLE on DOS: 04/11/24, XY CHEST PORTABLE on DOS: 02/26/24, XY CHEST PORTABLE on DOS: 02/27/23, XY CHEST PORTABLE on DOS: 01/08/23, XY CHEST PORTABLE on DOS: 01/05/23 FINDINGS: Lines and Tubes: None Lungs: No focal consolidation. Pleura: No effusion. No pneumothorax. Cardiomediastinal contours: Cardiomegaly Atherosclerotic vascular calcifications of the thoracic aort a are noted. Bones: No acute osseous abnormality. IMPRESSION: Cardiomegaly. No acute cardiopulmonary disease.
--- NOTE | 2024-11-26 13:13 | ECG ---
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
--- NOTE | 2024-11-26 14:35 | DVHHPRES ---
History of Present Illness Resident Creating Document: SHERLEY DO RESIDENT History of Present Illness This is a 84-year-old Setswana-speaking female with past medical history of heart failure with reduced ejection fraction-now preserved ejection fraction, hypertension, history of TAVR 2020, dyslipidemia, hypothyroidism who presented to the ER with a chief complaint of generalized weakness, and chest pain for the past day. Patient reports that she has been experiencing chest pain for about a month, which worsened for the past day, left-sided and sharp in nature, radiates to left arm. Intensity 7/10. Also says that the pain is unrelated to exertion, or food. Denies shortness of breaths on exertion or PND. Denies palpitations. She also reports that her blood pressure was elevated this morning with systolic in 160 mmHg therefore she decided to come into the ER. Associated symptoms, generalized weakness, low appetite. Patient has been admitted for acute chest pain given history of systolic CHF, TAVR. Past medical history: heart failure with reduced ejection fraction-now preserv ed ejection fraction, hypertension, history of TAVR 2020, dyslipidemia, hypothyroidism Past surgical history: TAVR 2020 Home medications: Entresto 49/51, ranolazine 500 mg, aspirin 81, Coreg 25 mg b.i.d., atorvastatin, Jardiance 10 mg, amlodipine 2.5 mg daily, docusate 100 mg daily, levothyroxine 25 mcg daily Social history: Lives with caregiver, has a daughter nearby, denies sm oking/drinking/drug use PCP: Dr. Bravo [employer] Underwriter Dr. Rojo Patient seen and examined in the ER. Reports generalized weakness and low appetite. Tropes, BNP unremarkable. Echo ordered. Family History: None Smoke: No ALCOHOL: none Drugs: None Lives: Other (Caregiver) Review of Systems Constitutional: Yes: Weakness, Malaise Cardiovascular: Chest Pain Gastrointestinal: Constipation Musculoskeletal: arm pain Allergies: Coded Allergies: No Known Drug Allergy (Verified Allergy, Unknown, 07/08/21) Exam Vital Signs Vital Signs Date Time Temp Pulse Resp B/P (MAP) Pulse Ox O2 Delivery O2 Flow Rate FiO2 11/26/24 13:11 68 11/26/24 12:38 97.8 18 164/63 (96) 97 97.8 Exam Elderly female patient sitting comfortably in a wheelchair, no acute distress General: Well-built, afebrile, mucosae are moist Cardiovascular: Palpable chest tenderness, Regular S1 and S2. No murmurs, gallops or rubs. No JVD elevation. No pedal edema Respiratory: Normal B/L air entry on room air. Clear lung sounds on auscultation Abdomen: Soft, nontender, nondistended, normoactive bowel sounds, no rebound tenderness, no organomegaly, no masses Genitourinary: Deferred MSK/skin: Mobilizes 4 limbs. Skin is dry and warm Neurological: No motor, no sensitive deficits, normal speech. Pupils are isocoric and reactive. Psych/Mental Status: A/Ox3 Labs/Xrays Labs Test 11/26/24 13:39 11/26/24 12:15 Range/Units Troponin I High Sensitivity 5 </=34 ng/L White Blood Count 5.0 4.4-10.8 10^3/uL Red Blood Count 3.96 L 4.0-5.20 10^6/uL Hemoglobin 12.5 12.2-16.2 g/dL Hematocrit 37.1 36.0-46.0 % Mean Corpuscular Volume 93.6 80.0-100.0 fL Mean Corpuscular Hemoglobin 31.6 28.0-32.0 pg Mean Corpuscular Hemoglobin Concent 33.7 32.0-36.0 g/dL Red Cell Distribution Width 13.2 11.8-14.3 % Platelet Count 318 140-450 10^3/uL Mean Platelet Volume 7.3 6.9-10.8 fL Neutrophils (%) (Auto) 65.3 37.0-80.0 % Lymphocytes (%) (Auto) 21.5 10.0-50.0 % Monocytes (%) (Auto) 11.7 0.0-12.0 % Eosinophils (%) (Auto) 1.0 0.0-7.0 % Basophils (%) (Auto) 0.5 0.0-2.0 % Neutrophils # (Auto) 3.3 1.6-8.6 10 ^3/uL Lymphocytes # (Auto) 1.1 0.4-5.4 10 ^3/uL Monocytes # (Auto) 0.6 0-1.3 10 ^3/uL Eosinophils # (Auto) 0 0-0.8 10 ^3/uL Basophils # (Auto) 0 0-0.2 10 ^3/uL Nucleated Red Blood Cells 0.0 % Prothrombin Time 10.9 9.3-11.8 sec Prothrombin Time INR 1.03 0.9-1.15 Activated Partial Thromboplast Time 27.6 24.5-34.5 SEC Sodium Level 134 L 136-145 mmol/L Potassium Level 4.5 3.5-5.1 mmol/L Chloride Level 101 98-107 mmol/L Carbon Dioxide Level 25 20-31 mmol/L Anion Gap 8 5-15 Blood Urea Nitrogen 18 9-23 mg/dL Creatinine 1.27 H 0.550-1.02 mg/dL Glomerular Filtration Rate Calc 41 >90 mL/min BUN/Creatinine Ratio 14.2 10.0-20.0 Serum Glucose 145 H 74-106 mg/dL Calcium Level 10.0 8.7-10.4 mg/dL Magnesium Level 2.2 1.6-2.6 mg/dL Total Bilirubin 0.3 0.2-1.0 mg/dL Aspartate Amino Transferase (AST) 17 13-40 U/L Alanine Aminotransferase (ALT) 19 7-40 U/L Alkaline Phosphatase 71 46-116 U/L B-Type Natriuretic Peptide 45.16 0-100 pg/mL Total Protein 7.1 5.7-8.2 g/dL Albumin 4.5 3.2-4.8 g/dL Assessment/Plan Assessment/Plan Acute chest pain, rule out ACS Rule out pericarditis Hypertensive crisis Chronic congestive heart failure-now preserved ejection fraction-EF 60% CKD stage 3 History of TAVR 2019 Left heart catheterization 2020 was negative for CAD Plan: Patient admitted to telemetry unit Aspirin 325 mg administered by the ER physician Continue aspirin 81 mg daily, atorvastatin 40 mg HS daily EKG shows old LBBB, NSR Troponin, BNP unremarkable Follow up with the echocardiogram Continue home medication Entresto, ranolazine, Coreg, Jardiance Increased home medication amlodipine from 2.5 mg daily to 5 mg daily given elevated blood pressure Continue levothyroxine 25 mcg daily Continue docusate and lactulose Follow up with COVID/influenza studies, ESR/CRP Plan discussed with patient, caregiver in the ER in which all questions have been answered Case discussed with Dr. Wallace Plan discussed with: Patient, Other (Caregiver) My Orders Orders - SHERLEY DO RESIDENT Procedure Category Date Status Time Admit ADMIT 11/26/24 Transmitted 14:16 Date of Service: November 26, 2024 Billing Provider: ANGELA WALLACE MD Common Visit Codes: 91039-AZGVIDI INP/OBS CARE (HIGH) Secondary Visit Codes: 04889-[id number] CARE PLAN 30 MINUTES ERNESTINAJOSHUASHERLEY RESIDENT November 26, 2024 14:35 ANGELA WALLACE MD November 27, 2024 07:19
[2024-11-26] MEDS ORDERED: MORPHINE SULFATE INJ 2 MG/ml SYRG IV PRN (14:45)
[2024-11-26] MEDS ORDERED: HYDROcodone-ACET 5/325MG TAB PO PRN (14:45)
[2024-11-26 19:38] LABS: COVID19 ANTIGEN SOFIA FIA NEGATIVE (NEGATIVE); Rapid Influenza A Negative (Negative); Rapid Influenza B Negative (Negative)
[2024-11-26 23:01] VITALS: BP 155/68; PULSE 68; RESP 18; TEMP 97.9; O2SAT 95; O2SAT 96
[2024-11-26] MEDS: ATORVASTATIN 20 MG TAB PO SCH (23:21)
[2024-11-26] MEDS: SACUBITRIL-VALSARTAN 24mg/26mg TAB PO SCH (23:21)
[2024-11-26] MEDS: RANOLAZINE ER 500 MG TAB PO SCH (23:21)
[2024-11-26] MEDS: CARVEDILOL 12.5 MG TAB PO SCH (23:23)
[2024-11-27] VITALS (9 sets, daily range): BP systolic 130–151; BP diastolic 48–72; PULSE 66–74; RESP 16–18; TEMP 97.4–98.5; O2SAT 97–99
[2024-11-27 00:15] LABS: Urine Bacteria None Seen /hpf (None Seen)
[2024-11-27 00:23] LABS: Urine Blood Negative /uL (Negative); Urine Clarity Clear (Clear); Urine Color Colorless (Yellow); Urine Protein, UAD TRACE (Negative); Urine Specific Gravity 1.004 (1.001-1.035); Urine Squamous Epithelial Cell None Seen /hpf (<5); Urine Urobilinogen Normal (Negative); Urine pH 6.5 (5.0-9.0)
[2024-11-27 00:27] LABS: Urine WBC < 1 /HPF (0-5)
[2024-11-27] MEDS: ACETAMINOPHEN 325 MG TAB PO ONE (01:07)
[2024-11-27 01:43] LABS: Creatinine, Urine 16.04 mg/dL (30.0-125.0); Urine Protein/Creatinine Ratio 1.43
[2024-11-27 01:44] LABS: Amphetamine Screen, Urine Neg (NEGATIVE); Barbiturate Scree,Urine Neg (NEGATIVE); Benzodiazephine Screen, Urine Neg (NEGATIVE); Cannabinoid Screen, Urine Neg (NEGATIVE); Cocaine Screen, Urine Neg (NEGATIVE); Opiate Scree,Urine Neg (NEGATIVE); Phencyclidine Screen, Urine Neg (NEGATIVE)
[2024-11-27] MEDS: LACTULOSE 20Gm/30ML SOLN PO ONE (03:26)
[2024-11-27] MEDS: CARVEDILOL 12.5 MG TAB PO ONE (03:26)
[2024-11-27] MEDS: LEVOTHYROXINE SODIUM 25 MCG TAB PO SCH (06:08)
[2024-11-27] MEDS: amLODIPine BESYLATE 5 MG TAB PO ONE (06:13)
[2024-11-27] MEDS: NITROGLYCERIN 0.4 MG SL TAB SL ONE (06:14)
[2024-11-27] MEDS: ASPirin 325 MG TAB PO ONE (06:15)
[2024-11-27 06:57] LABS: Basophils # (auto) 0 10 ^3/uL (0-0.2); Basophils % (auto) 0.4 % (0.0-2.0); Eosinophils # (auto) 0.1 10 ^3/uL (0-0.8); Eosinophils % (auto) 1.9 % (0.0-7.0); Hematocrit 36.4 % (36.0-46.0); Hemoglobin 12.4 g/dL (12.2-16.2); Lymphocytes # (auto) 1.2 10 ^3/uL (0.4-5.4); Lymphocytes % (auto) 23.3 % (10.0-50.0); Mean Corpuscular Hgb Conc. 34.1 g/dL (32.0-36.0); Mean Corpuscular Volume 93.9 fL (80.0-100.0); Monocytes # (auto) 0.7 10 ^3/uL (0-1.3); Monocytes % (auto) 13.5 % (0.0-12.0); Neutrophils # (auto) 3.3 10 ^3/uL (1.6-8.6); Neutrophils % (auto) 60.9 % (37.0-80.0); Platelet Count (auto) 307 10^3/uL (140-450); Red Blood Cells 3.88 10^6/uL (4.0-5.20); Red Cell Distribution Width 13.1 % (11.8-14.3); White Blood Cell 5.3 10^3/uL (4.4-10.8)
[2024-11-27 07:09] LABS: Alanine Aminotransferase 17 U/L (7-40); Albumin 4.3 g/dL (3.2-4.8); Alkaline Phosphatase 63 U/L (46-116); Anion Gap 10 (5-15); Aspartate Aminotransferase 16 U/L (13-40); BUN/Creatinine Ratio 14.8 (10.0-20.0); Bilirubin, Total 0.4 mg/dL (0.2-1.0); Blood Urea Nitrogen 16 mg/dL (9-23); Calcium 10.3 mg/dL (8.7-10.4); Carbon Dioxide 21 mmol/L (20-31); Glucose 106 mg/dL (74-106); Potassium 4.1 mmol/L (3.5-5.1); Sodium 138 mmol/L (136-145); Total Protein 7.2 g/dL (5.7-8.2)
[2024-11-27 07:11] LABS: Chloride 107 mmol/L (98-107)
[2024-11-27] MEDS: LACTULOSE 20Gm/30ML SOLN PO SCH (10:00)
[2024-11-27] MEDS: EMPAGLIFLOZIN 10 MG TAB PO SCH (10:20)
[2024-11-27] MEDS: ASPirin-EC 81 mg tab PO SCH (10:22)
[2024-11-27] MEDS: amLODIPine BESYLATE 5 MG TAB PO SCH (10:22)
[2024-11-27] MEDS: DOCUSATE SOD 100 MG CAP PO SCH (10:22)
[2024-11-27 10:25] LABS: Hepatitis B Surface Antigen Negative (Negative)
[2024-11-27 10:31] LABS: Hepatitis C Antibody Negative (Negative)
--- NOTE | 2024-11-27 10:58 | DVHPNRES ---
Progress Note Date Seen: November 27, 2024 Resident Creating Document: MATT AMAYA RESIDENT Has the PT tested + for MRSA If YES, has PT been informed?: No Medical Necessity Reason Pt with a Central, PICC or Fol: No Subjective Review of Systems KAVYA MUNIZ is a it looks as old female with a PMH of heart failure with reduced ejection fraction-now preserved ejection fraction, hypertension, history of TAVR 2020, dyslipidemia, hypothyroidism who presented to the ER with a chief complaint of generalized weakness, and chest pain for the past day. patient reported yesterday she checked her blood pressure which was around in 160 so visited ED. Patient seen and examined at the bedside. Patient reported currently no new complaints, improved in her symptoms since admission. Consulted cardiology for further evaluation. EKG and troponins for not significant. Patient reports: Feels better Objective vital signs Vital Sign Date Time Temp Pulse Resp B/P (MAP) Pulse Ox O2 Delivery O2 Flow Rate FiO2 11/27/24 10:22 151/54 11/27/24 10:21 74 11/27/24 09:00 98.4 17 98 98.4 11/26/24 23:01 Room Air* 0 21 Total Intake and Output 11/26/24 11/26/24 11/27/24 15:00 23:00 07:00 Intake Total 500 ml Balance 500 ml medications Current Medications Medications Dose Ordered Sig/Dilcia Route Start Time Stop Time Status Last Admin Dose Admin Aspirin 81 mg DAILY PO 11/27/24 10:00 11/27/24 10:22 81 MG Atorvastatin Calcium 40 mg HS PO 11/26/24 22:00 11/26/24 23:21 40 MG Amlodipine Besylate 5 mg DAILY PO 11/27/24 10:00 11/27/24 10:22 5 MG Lactulose 30 ml DAILY PO 11/27/24 10:00 Docusate Sodium 100 mg DAILY PO 11/27/24 10:00 11/27/24 10:22 100 MG Empaglifozin 10 mg DAILY PO 11/27/24 10:00 11/27/24 10:20 10 MG Levothyroxine Sodium 25 mcg QAM@0600 PO 11/27/24 06:00 11/27/24 06:08 25 MCG Ranolazine 500 mg BID PO 11/26/24 22:00 11/27/24 10:22 500 MG Carvedilol 25 mg Q12HR PO 11/26/24 22:00 11/27/24 10:21 25 MG Sacubitril/ Valsartan 2 tab BID PO 11/26/24 22:00 11/27/24 10:22 2 TAB Acetaminophen 500 mg Q4HPRN PRN PO 11/26/24 14:45 Acetaminophen/ Hydrocodone Bitart 1 tab Q4HPRN PRN PO 11/26/24 14:45 Morphine Sulfate 1 mg Q4HPRN PRN IV 11/26/24 14:45 Examination Pt is lying on bed General Appearance: Alert, Oriented X3, Cooperative, Not in acute distress HEENT: Atraumatic, Mucous membranes moist/pink Respiratory: Clear to auscultation, Normal air movement, No added sounds Cardiovascular: Regular rate, Normal S1, Normal S2, No murmurs Abdominal: Active bowel sounds, Soft, no distention, no tenderness Extremities: No edema, Normal pulses, No tenderness/swelling Skin: No Significant rash, except past surgical scars Neuro: Normal speech, sensorimotor deficits none Psych/Mental Status: Mental status NL, Mood NL Nurse was there as sharperone during examination laboratory and microbiology Laboratory Tests 11/27/24 06:21 Test 11/27/24 06:21 Range/Units Serum Glucose 106 74-106 mg/dL Labs and/or images reviewed: Labs reviewed by me, Image(s) reviewed by me Problem List/Assessment/Plan Problem List/Assessment/Plan # Chest pain rule out ACS # hypertensive crisis # Chronic HFpEF EF 60% not in exacerbation # History of TAVR 2019 # Ruled out pericarditis - EKG showed no ST changes except some old changes - troponins x3 were negative - BNP not elevated - chest pain protocol ordered aspirin, nitroglycerin, morphine - echocardiogram, pending - Cardiology consult on board - continue GDMT as tolerated Entresto, ranolazine, Coreg, Jardiance # hypothyroidism - continue levothyroxine 25 mcg # NANDINI likely VMN on CKD - continuously monitor lab Protonix Lovenox Cardiac diet Goals of care discussed with the patient for more than 29 minutes: Full code status Case discussed with Dr. Wheatley, patient and nurse Plan discussed with: Patient My Orders My Orders Orders - MATT AMAYA RESIDENT Procedure Category Date Status Time Pantoprazole PHA 11/28/24 Transmitted (Protonix) 10:00 Enoxaparin Sodium PHA 11/28/24 Transmitted (Lovenox) 10:00 Enoxaparin Sodium PHA 11/27/24 Transmitted (Lovenox) 11:00 MATT AMAYA RESIDENT November 27, 2024 10:57
[2024-11-27] MEDS: ENOXAPARIN SOD 40 MG/0.4 ML SYRINGE SC ONE (12:41)
--- NOTE | 2024-11-27 13:02 | DVHSR ---
APPROVED REPORT EXAM: Two-dimensional and M-mode echocardiogram with Doppler and color Doppler. Blood Pressure: 164/63 mmHg INDICATION Chest Pain Surgery/Intervention Valve Replacement: Type: TAVR RISK FACTORS Height: 5'2", Weight: 147 DIMENSIONS LVDd4.1 (3.8-5.7cm)LA (2D)4.1 (1.9-4.0cm)Aortic Root (2.0-3.7cm) LVDs3.1 (2.5-4.0cm)LA (MM) (1.9-4.0cm)Aortic Cusp Exc (1.5-2.0cm) EF (%) 50.0 (55-70%)Rt. Atrium (1.9-4.0cm)Asc. Aorta cm IVSd1.4 (0.7-1.1cm)RV (D) (1.8-2.4cm) PWd1.2 (0.7-1.1cm) Mitral Valve MitralMitral Stenosis E wave0.68m/sMV Mean GR.mmHg A wave1.12m/sMV Peak GR.mmHg E/A ratio0.62D MVAcm2 DECEL [id number] 1/2 Timems Aortic Valve Aortic ValveAortic Stenosis V11.27m/Hanna Mean GR.11mmHg V22.16m/Hanna Peak GR.20mmHg LVOT Diameter1.8 (1.8-2.4cm)Doppler AVA1.50cm2 Other Information Quality : Technically LimitedRhythm : Technically limited study due to body habitus. Conclusion Left ventricle: Concentric left ventricular hypertrophy was seen. LVEF was around 55%. No gross wa ll motion abnormality was observed. Abnormal relaxation of left ventricular diastolic function was o bserved. Right ventricle: Right ventricle was normal-sized with normal systolic function. Left atrium was mi ldly dilated. Right atrium was normal-sized. Aortic valve: Bioprosthetic valve was positioned at aortic valve area. There was no mismatch/regurg itation/stenosis. It was working properly. There was trace mitral regurgitation. There was trace tricuspid regurgitation. There was trace pulm onary valve insufficiency. As there was no good tricuspid regurgitation jet, right ventricular systolic pressure could not be es timated. There was no pericardial effusion.
--- NOTE | 2024-11-27 14:54 | ECG ---
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
--- NOTE | 2024-11-27 14:57 | DVHINCON2 ---
Date of service: November 27, 2024 History of Present Illness HPI Patient is a 84-year-old female who presented for low appetite and generalized weakness. There has been a comment about possible chest pain. Patient herself denies. She does come to our office for cardiac problems. She is Occitan speaking. Cardiology was involved for cardiac aspects of care. At the time of evaluation she denies any discomfort/chest pain/shortness of breath. Home Meds Active Scripts Losartan Potassium (Losartan Potassium) 25 Mg Tab, 25 MG PO DAILY for 30 Days, #30 MG 2 Refills Prov:MECHELLE SAMUEL DO 01/07/23 Reported Medications Donepezil Hydrochloride (DONEPEZIL HCL) 5 Mg Tab, 1 TAB PO HS for 30 Days, #30 11/27/24 Meloxicam (Meloxicam) 15 Mg Tab, 1 TAB PO DAILY for 90 Days, #90 11/27/24 Potassium Chloride (Potassium Chloride ER) 10 Meq Tab, 1 TAB PO DAILY for 90 Days, #90 11/27/24 Atorvastatin Calcium (ATORVASTATIN CALCIUM) 20 Mg Tab, 1 TAB PO DAILY for 90 Days, #90 11/27/24 Amlodipine Besylate (Amlodipine Besylate) 5 Mg Tab, 1 TAB PO DAILY for 30 Days, #30 11/27/24 Hctz (Hydrochlorothiazide) 25 Mg Tab, 1 TAB PO QAM 06/28/24 Cyclosporine (Ophth) (Restasis) 0.05 % Emu, 1 DROP EACHEYE UD for 28 Days, #5.5 3 Refills Instill 1 drop into affected eye as directed. 02/29/24 Empagliflozin (Jardiance) 10 Mg Tab, 1 TAB PO DAILY for 30 Days, #30 02/29/24 Sacubitril-Valsartan (Entresto 49-51 mg) 1 Tab Tab, 1 TAB PO BID for 30 Days, #60 02/29/24 Ranolazine (Ranolazine ER) 500 Mg Tab, 1 TAB PO BID for 90 Days, #180 02/29/24 Levothyroxine Sodium (Levothyroxine Sodium) 25 Mcg Tab, 1 TAB PO DAILY for 90 Days, #90 02/29/24 Carvedilol (Carvedilol) 25 Mg Tab, 1 TAB PO BID for 90 Days, #180 02/29/24 Aspirin (Aspir-Low) 81 Mg Tab, 1 TAB PO DAILY for 30 Days, #30 02/29/24 Mirtazapine (Mirtazapine Oral Disintegrating Tablet) 15 Mg Tab, 1 TAB PO QPM for 30 Days, #30 01/05/23 Docusate Sodium (Colace) 100 Mg Cap, 1 CAP PO DAILY for 90 Days, #90 04/02/17 Alprazolam (Alprazolam) 0.25 Mg Tab, 0.25 MG PO PRN for ANXIETY, TAB 04/02/17 Past Medical History Others Past medical history includes hypertension, hyperlipidemia, coronary artery disease, hypothyroidism, anxiety disorder, DJD, valvular heart disease, status post aortic valve replacement, D CKD, status post cholecystectomy, GERD, anxiety disorder and history of heart failure with improved ejection fraction. Patient Family History: Cardiac disorder in father G8 FATHER Cardiac disorder in mother G8 MOTHER FH: hypertension G8 BROTHER G8 BROTHER G8 BROTHER G8 BROTHER G8 BROTHER G8 BROTHER G8 SISTER Smoker: No Hx (Negative) Drugs: None Lives with: With family Review of Systems Constitutional: No symptom reported All Other Systems Fourteen point review of system was performed. Relevant findings as per above and as per HPI. Otherwise negative. H&P Exam Vital Signs Vital Signs Date Time Temp Pulse Resp B/P (MAP) Pulse Ox O2 Delivery O2 Flow Rate FiO2 11/27/24 11:21 68 131/55 11/27/24 09:00 98.4 17 98 98.4 11/27/24 08:05 Room Air* 0 21 General Appeara: Well developed Head Exam: Normal inspection Eye Exam: bilateral eye PERRL Mouth: Normal Inspection Pulmonary/Respiratory: Lungs clear Cardiovascular/Chest: Regular rate, Systolic murmur Abdominal Exam: Normal bowel sounds, Soft Neuro/Mental St: Alert, Oriented Appearance: Appropriate appearance Labs/Xrays Labs Test 11/27/24 06:21 11/27/24 00:06 11/26/24 19:08 11/26/24 13:39 Range/Units White Blood Count 5.3 4.4-10.8 10^3/uL Red Blood Count 3.88 L 4.0-5.20 10^6/uL Hemoglobin 12.4 12.2-16.2 g/dL Hematocrit 36.4 36.0-46.0 % Mean Corpuscular Volume 93.9 80.0-100.0 fL Mean Corpuscular Hemoglobin 32.0 28.0-32.0 pg Mean Corpuscular Hemoglobin Concent 34.1 32.0-36.0 g/dL Red Cell Distribution Width 13.1 11.8-14.3 % Platelet Count 307 140-450 10^3/uL Mean Platelet Volume 7.7 6.9-10.8 fL Neutrophils (%) (Auto) 60.9 37.0-80.0 % Lymphocytes (%) (Auto) 23.3 10.0-50.0 % Monocytes (%) (Auto) 13.5 H 0.0-12.0 % Eosinophils (%) (Auto) 1.9 0.0-7.0 % Basophils (%) (Auto) 0.4 0.0-2.0 % Neutrophils # (Auto) 3.3 1.6-8.6 10 ^3/uL Lymphocytes # (Auto) 1.2 0.4-5.4 10 ^3/uL Monocytes # (Auto) 0.7 0-1.3 10 ^3/uL Eosinophils # (Auto) 0.1 0-0.8 10 ^3/uL Basophils # (Auto) 0 0-0.2 10 ^3/uL Nucleated Red Blood Cells 0.0 % Sodium Level 138 136-145 mmol/L Potassium Level 4.1 3.5-5.1 mmol/L Chloride Level 107 98-107 mmol/L Carbon Dioxide Level 21 20-31 mmol/L Anion Gap 10 5-15 Blood Urea Nitrogen 16 9-23 mg/dL Creatinine 1.08 H 0.550-1.02 mg/dL Glomerular Filtration Rate Calc 50 >90 mL/min BUN/Creatinine Ratio 14.8 10.0-20.0 Serum Glucose 106 74-106 mg/dL Calcium Level 10.3 8.7-10.4 mg/dL Total Bilirubin 0.4 0.2-1.0 mg/dL Aspartate Amino Transferase (AST) 16 13-40 U/L Alanine Aminotransferase (ALT) 17 7-40 U/L Alkaline Phosphatase 63 46-116 U/L Total Protein 7.2 5.7-8.2 g/dL Albumin 4.3 3.2-4.8 g/dL Hepatitis B Surface Antigen Negative Negative Hepatitis C Antibody Negative Negative Urine Color Colorless Yellow Urine Clarity Clear Clear Urine pH 6.5 5.0-9.0 Urine Specific [place] 1.004 1.001-1.035 Urine Protein Trace H Negative Urine Ketones Negative Negative Urine Blood Negative Negative /uL Urine Nitrite Negative Negative Urine Bilirubin Negative Negative Urine Urobilinogen Normal Negative mg/dL Urine Leukocyte Esterase Negative Negative /uL Urine RBC <1 0 - 4 /hpf Urine Microscopic WBC < 1 0-5 /HPF Urine Squamous Epithelial Cells None seen <5 /hpf Urine Bacteria None seen None Seen /hpf Urine Creatinine 16.04 L 30.0-125.0 mg/dL Urine Protein/Creatinine Ratio 1.43 Urine Sodium 35 L 40-220 mmol/L Urine Glucose 4+ H Normal mg/dL Urine Total Protein 23.0 H 1-14 mg/dL Urine Opiates Screen Neg NEGATIVE Urine Fentanyl Screen Neg NEGATIVE Urine Barbiturates Screen Neg NEGATIVE Urine Phencyclidine Screen Neg NEGATIVE Urine Amphetamines Screen Neg NEGATIVE Urine Benzodiazepines Screen Neg NEGATIVE Urine Cocaine Screen Neg NEGATIVE Urine Cannabinoids Screen Neg NEGATIVE Influenza Type A Antigen Negative Negative Influenza Type B Antigen Negative Negative SARS-CoV-2 Antigen (Rapid) Negative NEGATIVE Troponin I High Sensitivity 5 </=34 ng/L Test 11/26/24 12:15 Range/Units Prothrombin Time 10.9 9.3-11.8 sec Prothrombin Time INR 1.03 0.9-1.15 Activated Partial Thromboplast Time 27.6 24.5-34.5 SEC Hemoglobin A1c 5.5 <5.7 % A1C Magnesium Level 2.1 1.6-2.6 mg/dL B-Type Natriuretic Peptide 45.16 0-100 pg/mL Vitamin B12 Level > 4000 H 211-911 pg/mL Vitamin D 25-Hydroxy 71.7 30.0-100 ng/mL Thyroid Stimulating Hormone (TSH) 0.11 L 0.55-4.78 uIU/mL Assessment/Plan Plan Patient is a 84-year-old female who presented for low appetite and generalized weakness. There has been a comment about possible chest pain. Patient herself denies. She does come to our office for cardiac problems. She is Occitan speaking. Cardiology was involved for cardiac aspects of care. At the time of evaluation she denies any discomfort/chest pain/shortness of breath. Past medical history includes hypertension, hyperlipidemia, coronary artery disease, hypothyroidism, anxiety disorder, DJD, valvular heart disease, status post aortic valve replacement, D CKD, status post cholecystectomy, GERD, anxiety disorder and history of heart failure with improved ejection fraction. Echocardiogram of February 2024 revealed mild concentric left ventricular hypertrophy, ejection fraction of 55-60%, mild biatrial enlargement, bioprosthetic valve in aortic position with was working properly. There was no tricuspid regurgitation jet, mild MR as there was no good tricuspid regurgitation jet, right ventricular systolic pressure could not be estimated. Echocardiogram of August 07, 2024 (performed in the office) revealed mild concentric left ventricular hypertrophy, ejection fraction of 60-65%, paradoxical septal motion, mild left atrial enlargement, tissue prosthetic valve in aortic position was working properly. Mild mitral annular calcification, no MR. Trace TR. As there was no good tricuspid regurgitation jet, right ventricular systolic pressure could not be estimated. BNP: 45.16 Troponin (high sensitive): 4-5 TSH: 0.11 Chest x-ray revealed: IMPRESSION: Cardiomegaly. No acute cardiopulmonary disease. EKG revealed sinus rhythm with left bundle branch block Tele reveals sinus rhythm Echocardiogram revealed: Left ventricle: Concentric left ventricular hypert rophy was seen. LVEF was around 55%. No gross wall motion abnormality was observed. Abnormal relaxation of left ventricular diastolic function was observed. Right ventricle: Right ventricle was normal-sized with normal systolic function. Left atrium was mildly dilated. Right atrium was normal- sized. Aortic valve: Bioprosthetic valve was positioned at aortic valve area. There was no mismatch/regurgitation/stenosis. It was working properly. There was trace mitral regurgitation. There was trace tricuspid regurgitation. There was trace pulmonary valve insufficiency. As there was no good tricuspid regurgitation jet, right ventricular systolic pressure could not be estimated. There was no pericardial effusion. Patient is a 84-year-old female who presented with generalized weakness and poor appetite. Denies chest pain. Does have chronic history of heart failure with improved ejection fraction, status post TAVR, old history of left bundle branch block. Presentation is not considered acute coronary syndrome. Does have bioprosthetic valve in aortic position which is working properly. Poor appetite Status post aortic valve replacement Heart failure with improved ejection fraction Hypertension Hyperlipidemia ACS is not considered Cardiac suggestion for management: Managed on telemetry Follow-up electrolytes and kidney function tests and correct abnormalities No indication for ischemic workup Continue aspirin/carvedilol/Entresto/ranolazine Evaluation and management of poor appetite as per primary team Cardiac-oseguera, the patient can be managed as outpatient A total of 75 minutes was spent reviewing the patient record, examining the patient, making a diagnostic and therapeutic plan, discussing this plan with medical personnel, following up on diagnostic studies and following the patient for clinical stability excluding any and all procedures. At least 50% of this time was spent in direct, [id number] contact. Thank you for allowing me to participate in this patient's care. Further recommendations will depend on patient's clinical course. Please do not hesitate to contact me if you have any questions or concerns. This medical document was created using electronic medical record system with [employer] computerized dictation system. Although this document has been carefully reviewed, there may still be some phonetic and typographical errors. These areas are purely typographical due to the imperfection of the software programs, and do not reflect any compromise in the patient's medical care. Plan discussed with: Patient, Other (nurse) YOSEPH TANG MD November 27, 2024 14:57
[2024-11-27] MEDS: ACETAMINOPHEN 500 MG TAB or CAP PO PRN (16:55)
[2024-11-28] VITALS (8 sets, daily range): BP systolic 108–145; BP diastolic 34–61; PULSE 66–104; RESP 15–18; TEMP 97.6–98.3; O2SAT 94–99
--- NOTE | 2024-11-28 07:53 | DVHPN2 ---
Progress Note - Dictate Date Seen: November 28, 2024 Has the PT tested + for MRSA If YES, has PT been informed?: No Medical Necessity Reason Pt with a Central, PICC or Fol: No vital signs Vital Sign Date Time Temp Pulse Resp B/P (MAP) Pulse Ox O2 Delivery O2 Flow Rate FiO2 11/28/24 05:00 98.2 71 17 141/61 (87) 94 98.2 11/27/24 20:00 Room Air* 0 21 Total Intake and Output 11/27/24 11/27/24 11/28/24 15:00 23:00 07:00 Intake Total 700 ml 675 ml Balance 700 ml 675 ml medications Current Medications Medications Dose Ordered Sig/Dilcia Route Start Time Stop Time Status Last Admin Dose Admin Aspirin 81 mg DAILY PO 11/27/24 10:00 11/27/24 10:22 81 MG Atorvastatin Calcium 40 mg HS PO 11/26/24 22:00 11/27/24 21:08 40 MG Amlodipine Besylate 5 mg DAILY PO 11/27/24 10:00 11/27/24 10:22 5 MG Lactulose 30 ml DAILY PO 11/27/24 10:00 Docusate Sodium 100 mg DAILY PO 11/27/24 10:00 11/27/24 10:22 100 MG Empaglifozin 10 mg DAILY PO 11/27/24 10:00 11/27/24 10:20 10 MG Levothyroxine Sodium 25 mcg QAM@0600 PO 11/27/24 06:00 11/28/24 05:43 25 MCG Ranolazine 500 mg BID PO 11/26/24 22:00 11/27/24 21:09 500 MG Carvedilol 25 mg Q12HR PO 11/26/24 22:00 11/27/24 21:10 25 MG Sacubitril/ Valsartan 2 tab BID PO 11/26/24 22:00 11/27/24 21:09 2 TAB Acetaminophen 500 mg Q4HPRN PRN PO 11/26/24 14:45 11/27/24 16:55 500 MG Acetaminophen/ Hydrocodone Bitart 1 tab Q4HPRN PRN PO 11/26/24 14:45 Morphine Sulfate 1 mg Q4HPRN PRN IV 11/26/24 14:45 Pantoprazole Sodium 40 mg DAILY IV 11/28/24 10:00 Enoxaparin Sodium 40 mg DAILY SC 11/28/24 10:00 laboratory and microbiology Laboratory Tests 11/27/24 06:21 Test 11/27/24 06:21 Range/Units Serum Glucose 106 74-106 mg/dL Assessment/Plan Patient is a 84-year-old female who presented for low appetite and generalized weakness. There has been a comment about possible chest pain. Patient herself denies. She does come to our office for cardiac problems. She is German speaking. Cardiology was involved for cardiac aspects of care. At the time of evaluation she denies any discomfort/chest pain/shortness of breath. Past medical history includes hypertension, hyperlipidemia, coronary artery disease, hypothyroidism, anxiety disorder, DJD, valvular heart disease, status post aortic valve replacement, D CKD, status post cholecystectomy, GERD, anxiety disorder and history of heart failure with improved ejection fraction. Echocardiogram of February 2024 revealed mild concentric left ventricular hypertrophy, ejection fraction of 55-60%, mild biatrial enlargement, bioprosthetic valve in aortic position with was working properly. There was no tricuspid regurgitation jet, mild MR as there was no good tricuspid regurgitation jet, right ventricular systolic pressure could not be estimated. Echocardiogram of August 07, 2024 (performed in the office) revealed mild concentric left ventricular hypertrophy, ejection fraction of 60-65%, paradoxical septal motion, mild left atrial enlargement, tissue prosthetic valve in aortic position was working properly. Mild mitral annular calcification, no MR. Trace TR. As there was no good tricuspid regurgitation jet, right ventricular systolic pressure could not be estimated. BNP: 45.16 Troponin (high sensitive): 4-5 TSH: 0.11 Chest x-ray revealed: IMPRESSION: Cardiomegaly. No acute cardiopulmonary disease. EKG revealed sinus rhythm with left bundle branch block Tele reveals sinus rhythm Echocardiogram revealed: Left ventricle: Concentric left ventricular hypertrophy was seen. LVEF was around 55%. No gross wall motion abnormality was observed. Abnormal relaxation of left ventricular diastolic function was observed. Right ventricle: Right ventricle was normal-sized with normal systolic function. Left atrium was mildly dilated. Right atrium was normal- sized. Aortic valve: Bioprosthetic valve was positioned at aortic valve area. There was no mismatch/regurgitation/stenosis. It was working properly. There was trace mitral regurgitation. There was trace tricuspid regurgitation. There was trace pulmonary valve insufficiency. As there was no good tricuspid regurgitation jet, right ventricular systolic pressure could not be estimated. There was no pericardial effusion. Patient is a 84-year-old female who presented with generalized weakness and poor appetite. Denies chest pain. Does have chronic history of heart failure with improved ejection fraction, status post TAVR, old history of left bundle branch block. Presentation is not considered acute coronary syndrome. Does have bioprosthetic valve in aortic position which is working properly. Poor appetite Status post aortic valve replacement Heart failure with improved ejection fraction Hypertension Hyperlipidemia ACS is not considered Cardiac suggestion for management: Managed on telemetry Follow-up electrolytes and kidney function tests and correct abnormalities No indication for ischemic workup Continue aspirin/carvedilol/Entresto/ranolazine Evaluation and management of poor appetite as per primary team Cardiac-oseguera, the patient can be managed as outpatient A total of 55 minutes was spent reviewing the patient record, examining the patient, making a diagnostic and therapeutic plan, discussing this plan with medical personnel, following up on diagnostic studies and following the patient for clinical stability excluding any and all procedures. At least 50% of this time was spent in direct, [id number] contact. Thank you for allowing me to participate in this patient's care. Further recommendations will depend on patient's clinical course. Please do not hesitate to contact me if you have any questions or concerns. This medical document was created using electronic medical record system with [employer] computerized dictation system. Although this document has been carefully reviewed, there may still be some phonetic and typographical errors. These areas are purely typographical due to the imperfection of the software programs, and do not reflect any compromise in the patient's medical care. Plan discussed with: Patient, Other (nurse) YOSEPH TANG MD November 28, 2024 07:53
[2024-11-28] MEDS: PANTOPRAZOLE 40 MG/10 ML VIAL INJ IV SCH (09:42)
[2024-11-28] MEDS: ENOXAPARIN SOD 40 MG/0.4 ML SYRINGE SC SCH (09:42)
[2024-11-28 10:46] LABS: Chloride 104 mmol/L (98-107); Potassium 4.1 mmol/L (3.5-5.1)
[2024-11-28 10:47] LABS: Anion Gap 7 (5-15); Calcium 9.5 mg/dL (8.7-10.4); Carbon Dioxide 23 mmol/L (20-31)
[2024-11-28 10:52] LABS: BUN/Creatinine Ratio 15.1 (10.0-20.0); Blood Urea Nitrogen 18 mg/dL (9-23)
[2024-11-28 10:56] LABS: Glucose 146 mg/dL (74-106); Sodium 134 mmol/L (136-145)
--- NOTE | 2024-11-28 11:18 | DVHPNRES ---
Progress Note Date Seen: November 28, 2024 Resident Creating Document: MATT AMAYA RESIDENT Has the PT tested + for MRSA If YES, has PT been informed?: No Medical Necessity Reason Pt with a Central, PICC or Fol: No Subjective Review of Systems Patient seen and examined at the bedside. No new complaints at this time. Patient's blood pressure is fluctuating, monitoring continuously. Patient reports: Feels better Objective vital signs Vital Sign Date Time Temp Pulse Resp B/P (MAP) Pulse Ox O2 Delivery O2 Flow Rate FiO2 11/28/24 09:44 71 127/47 11/28/24 09:00 98.3 18 97 98.3 11/28/24 08:00 Room Air* 0 21 Total Intake and Output 11/27/24 11/27/24 11/28/24 15:00 23:00 07:00 Intake Total 700 ml 675 ml Balance 700 ml 675 ml medications Current Medications Medications Dose Ordered Sig/Dilcia Route Start Time Stop Time Status Last Admin Dose Admin Aspirin 81 mg DAILY PO 11/27/24 10:00 11/28/24 09:42 81 MG Atorvastatin Calcium 40 mg HS PO 11/26/24 22:00 11/27/24 21:08 40 MG Amlodipine Besylate 5 mg DAILY PO 11/27/24 10:00 11/28/24 09:43 5 MG Lactulose 30 ml DAILY PO 11/27/24 10:00 11/28/24 09:44 30 ML Docusate Sodium 100 mg DAILY PO 11/27/24 10:00 11/28/24 09:42 100 MG Empaglifozin 10 mg DAILY PO 11/27/24 10:00 11/28/24 09:42 10 MG Levothyroxine Sodium 25 mcg QAM@0600 PO 11/27/24 06:00 11/28/24 05:43 25 MCG Ranolazine 500 mg BID PO 11/26/24 22:00 11/28/24 09:42 500 MG Carvedilol 25 mg Q12HR PO 11/26/24 22:00 11/28/24 09:44 25 MG Sacubitril/ Valsartan 2 tab BID PO 11/26/24 22:00 11/28/24 09:44 2 TAB Acetaminophen 500 mg Q4HPRN PRN PO 11/26/24 14:45 11/27/24 16:55 500 MG Acetaminophen/ Hydrocodone Bitart 1 tab Q4HPRN PRN PO 11/26/24 14:45 Morphine Sulfate 1 mg Q4HPRN PRN IV 11/26/24 14:45 Pantoprazole Sodium 40 mg DAILY IV 11/28/24 10:00 11/28/24 09:42 40 MG Enoxaparin Sodium 40 mg DAILY SC 11/28/24 10:00 11/28/24 09:42 40 MG Examination Pt is lying on bed General Appearance: Alert, Oriented X3, Cooperative, Not in acute distress HEENT: Atraumatic, Mucous membranes moist/pink Respiratory: Clear to auscultation, Normal air movement, No added sounds Cardiovascular: Regular rate, Normal S1, Normal S2, No murmurs Abdominal: Active bowel sounds, Soft, no distention, no tenderness Extremities: No edema, Normal pulses, No tenderness/swelling Skin: No Significant rash, except past surgical scars Neuro: Normal speech, sensorimotor deficits none Psych/Mental Status: Mental status NL, Mood NL Nurse was there as maynorne during examination laboratory and microbiology Laboratory Tests 11/28/24 10:30 11/27/24 06:21 Test 11/28/24 10:30 Range/Units Serum Glucose 146 H 74-106 mg/dL Labs and/or images reviewed: Labs reviewed by me, Image(s) reviewed by me Problem List/Assessment/Plan Problem List/Assessment/Plan # Chest pain ruled out ACS likely from hypertension # hypertensive crisis # Chronic HFpEF EF 60% not in exacerbation # History of TAVR 2019 # Ruled out pericarditis - EKG showed no ST changes except some old changes - troponins x3 were negative - BNP not elevated - chest pain protocol ordered aspirin, nitroglycerin, morphine - echocardiogram, pending - Cardiology consult on board advised no further indication for ischemic workup and advised to continue monitor blood pressure - continue GDMT as tolerated Entresto, ranolazine, Coreg, Jardiance # hypothyroidism - continue levothyroxine 25 mcg # NANDINI likely VMN on CKD - continuously monitor lab Protonix Lovenox Cardiac diet Goals of care discussed with the patient for more than 29 minutes: Full code status Case discussed with Dr. Wheatley, patient and nurse Plan discussed with: Patient MATT AMAYA RESIDENT November 28, 2024 11:18
[2024-11-29 01:00] VITALS: BP 107/42; PULSE 76; RESP 15; TEMP 98.6; O2SAT 96
[2024-11-29 04:58] VITALS: BP 130/47; PULSE 73; RESP 15; TEMP 98.3; O2SAT 96
--- NOTE | 2024-11-29 06:44 | DVHPN2 ---
Progress Note - Dictate Date Seen: November 29, 2024 Has the PT tested + for MRSA If YES, has PT been informed?: No Medical Necessity Reason Pt with a Central, PICC or Fol: No vital signs Vital Sign Date Time Temp Pulse Resp B/P (MAP) Pulse Ox O2 Delivery O2 Flow Rate FiO2 11/29/24 04:58 98.3 73 15 130/47 (74) 96 98.3 11/28/24 20:00 Room Air* 0 21 Total Intake and Output 11/28/24 11/28/24 11/29/24 15:00 23:00 07:00 Intake Total 1100 ml 450 ml Output Total 400 ml Balance 1100 ml 50 ml medications Current Medications Medications Dose Ordered Sig/Dilcia Route Start Time Stop Time Status Last Admin Dose Admin Aspirin 81 mg DAILY PO 11/27/24 10:00 11/28/24 09:42 81 MG Atorvastatin Calcium 40 mg HS PO 11/26/24 22:00 11/28/24 21:40 40 MG Amlodipine Besylate 5 mg DAILY PO 11/27/24 10:00 11/28/24 09:43 5 MG Lactulose 30 ml DAILY PO 11/27/24 10:00 11/28/24 09:44 30 ML Docusate Sodium 100 mg DAILY PO 11/27/24 10:00 11/28/24 09:42 100 MG Empaglifozin 10 mg DAILY PO 11/27/24 10:00 11/28/24 09:42 10 MG Levothyroxine Sodium 25 mcg QAM@0600 PO 11/27/24 06:00 11/29/24 05:07 25 MCG Ranolazine 500 mg BID PO 11/26/24 22:00 11/28/24 21:41 500 MG Carvedilol 25 mg Q12HR PO 11/26/24 22:00 11/28/24 21:41 25 MG Sacubitril/ Valsartan 2 tab BID PO 11/26/24 22:00 11/28/24 21:41 2 TAB Acetaminophen 500 mg Q4HPRN PRN PO 11/26/24 14:45 11/27/24 16:55 500 MG Acetaminophen/ Hydrocodone Bitart 1 tab Q4HPRN PRN PO 11/26/24 14:45 Morphine Sulfate 1 mg Q4HPRN PRN IV 11/26/24 14:45 Pantoprazole Sodium 40 mg DAILY IV 11/28/24 10:00 11/28/24 09:42 40 MG Enoxaparin Sodium 40 mg DAILY SC 11/28/24 10:00 11/28/24 09:42 40 MG laboratory and microbiology Laboratory Tests 11/28/24 10:30 11/27/24 06:21 Test 11/28/24 10:30 Range/Units Serum Glucose 146 H 74-106 mg/dL Assessment/Plan Patient is a 84-year-old female who presented for low appetite and generalized weakness. There has been a comment about possible chest pain. Patient herself denies. She does come to our office for cardiac problems. She is Japanese speaking. Cardiology was involved for cardiac aspects of care. At the time of evaluation she denies any discomfort/chest pain/shortness of breath. Past medical history includes hypertension, hyperlipidemia, coronary artery disease, hypothyroidism, anxiety disorder, DJD, valvular heart disease, status post aortic valve replacement, D CKD, status post cholecystectomy, GERD, anxiety disorder and history of heart failure with improved ejection fraction. Echocardiogram of February 2024 revealed mild concentric left ventricular hypertrophy, ejection fraction of 55-60%, mild biatrial enlargement, bioprosthetic valve in aortic position with was working properly. There was no tricuspid regurgitation jet, mild MR as there was no good tricuspid regurgitation jet, right ventricular systolic pressure could not be estimated. Echocardiogram of August 07, 2024 (performed in the office) revealed mild concentric left ventricular hypertrophy, ejection fraction of 60-65%, paradoxical septal motion, mild left atrial enlargement, tissue prosthetic valve in aortic position was working properly. Mild mitral annular calcification, no MR. Trace TR. As there was no good tricuspid regurgitation jet, right ventricular systolic pressure could not be estimated. BNP: 45.16 Troponin (high sensitive): 4-5 TSH: 0.11 Chest x-ray revealed: IMPRESSION: Cardiomegaly. No acute cardiopulmonary disease. EKG revealed sinus rhythm with left bundle branch block Tele reveals sinus rhythm Echocardiogram revealed: Left ventricle: Concentric left ventricular hypertrophy was seen. LVEF was around 55%. No gross wall motion abnormality was observed. Abnormal relaxation of left ventricular diastolic function was observed. Right ventricle: Right ventricle was normal-sized with normal systolic function. Left atrium was mildly dilated. Right atrium was normal- sized. Aortic valve: Bioprosthetic valve was positioned at aortic valve area. There was no mismatch/regurgitation/stenosis. It was working properly. There was trace mitral regurgitation. There was trace tricuspid regurgitation. There was trace pulmonary valve insufficiency. As there was no good tricuspid regurgitation jet, right ventricular systolic pressure could not be estimated. There was no pericardial effusion. Patient is a 84-year-old female who presented with generalized weakness and poor appetite. Denies chest pain. Does have chronic history of heart failure with improved ejection fraction, status post TAVR, old history of left bundle branch block. Presentation is not considered acute coronary syndrome. Does have bioprosthetic valve in aortic position which is working properly. Poor appetite Status post aortic valve replacement Heart failure with improved ejection fraction Hypertension Hyperlipidemia ACS is not considered Cardiac suggestion for management: Managed on telemetry Follow-up electrolytes and kidney function tests and correct abnormalities No indication for ischemic workup Continue aspirin/carvedilol/Entresto/ranolazine Evaluation and management of poor appetite as per primary team Cardiac-oseguera, the patient can be managed as outpatient A total of 55 minutes was spent reviewing the patient record, examining the patient, making a diagnostic and therapeutic plan, discussing this plan with medical personnel, following up on diagnostic studies and following the patient for clinical stability excluding any and all procedures. At least 50% of this time was spent in direct, [id number] contact. Thank you for allowing me to participate in this patient's care. Further recommendations will depend on patient's clinical course. Please do not hesitate to contact me if you have any questions or concerns. This medical document was created using electronic medical record system with [employer] computerized dictation system. Although this document has been carefully reviewed, there may still be some phonetic and typographical errors. These areas are purely typographical due to the imperfection of the software programs, and do not reflect any compromise in the patient's medical care. Plan discussed with: Other (nurse) YOSEPH TANG MD November 29, 2024 06:44
[2024-11-29 08:00] VITALS: PULSE 66; RESP 18
[2024-11-29 09:00] VITALS: BP 131/60; PULSE 74; RESP 16; TEMP 97.8; O2SAT 96
--- NOTE | 2024-11-29 11:55 | DVHDSRES ---
Discharge Summary Date of Admission Resident Creating Document: MATT AMAYA RESIDENT November 26, 2024 at 14:16 Date of Discharge: November 29, 2024 Admitting Diagnosis Chest pain with generalized weakness Labs/Diagnostic Data: Laboratory Results Test 11/28/24 10:30 11/27/24 06:21 11/27/24 00:06 11/26/24 19:08 Sodium Level 134 mmol/L (136-145) Potassium Level 4.1 mmol/L (3.5-5.1) Chloride Level 104 mmol/L (98-107) Carbon Dioxide Level 23 mmol/L (20-31) Anion Gap 7 (5-15) Blood Urea Nitrogen 18 mg/dL (9-23) Creatinine 1.19 mg/dL (0.550-1.02) Glomerular Filtration Rate Calc 45 mL/min (>90) BUN/Creatinine Ratio 15.1 (10.0-20.0) Serum Glucose 146 mg/dL (74-106) Calcium Level 9.5 mg/dL (8.7-10.4) White Blood Count 5.3 10^3/uL (4.4-10.8) Red Blood Count 3.88 10^6/uL (4.0-5.20) Hemoglobin 12.4 g/dL (12.2-16.2) Hematocrit 36.4 % (36.0-46.0) Mean Corpuscular Volume 93.9 fL (80.0-100.0) Mean Corpuscular Hemoglobin 32.0 pg (28.0-32.0) Mean Corpuscular Hemoglobin Concent 34.1 g/dL (32.0-36.0) Red Cell Distribution Width 13.1 % (11.8-14.3) Platelet Count 307 10^3/uL (140-450) Mean Platelet Volume 7.7 fL (6.9-10.8) Neutrophils (%) (Auto) 60.9 % (37.0-80.0) Lymphocytes (%) (Auto) 23.3 % (10.0-50.0) Monocytes (%) (Auto) 13.5 % (0.0-12.0) Eosinophils (%) (Auto) 1.9 % (0.0-7.0) Basophils (%) (Auto) 0.4 % (0.0-2.0) Neutrophils # (Auto) 3.3 10 ^3/uL (1.6-8.6) Lymphocytes # (Auto) 1.2 10 ^3/uL (0.4-5.4) Monocytes # (Auto) 0.7 10 ^3/uL (0-1.3) Eosinophils # (Auto) 0.1 10 ^3/uL (0-0.8) Basophils # (Auto) 0 10 ^3/uL (0-0.2) Nucleated Red Blood Cells 0.0 % Total Bilirubin 0.4 mg/dL (0.2-1.0) Aspartate Amino Transferase (AST) 16 U/L (13-40) Alanine Aminotransferase (ALT) 17 U/L (7-40) Alkaline Phosphatase 63 U/L (46-116) Total Protein 7.2 g/dL (5.7-8.2) Albumin 4.3 g/dL (3.2-4.8) Hepatitis B Surface Antigen Negative (Negative) Hepatitis C Antibody Negative (Negative) Urine Color Colorless (Yellow) Urine Clarity Clear (Clear) Urine pH 6.5 (5.0-9.0) Urine Specific [place] 1.004 (1.001-1.035) Urine Protein Trace (Negative) Urine Ketones Negative (Negative) Urine Blood Negative /uL (Negative) Urine Nitrite Negative (Negative) Urine Bilirubin Negative (Negative) Urine Urobilinogen Normal mg/dL (Negative) Urine Leukocyte Esterase Negative /uL (Negative) Urine RBC <1 /hpf (0 - 4) Urine Microscopic WBC < 1 /HPF (0-5) Urine Squamous Epithelial Cells None seen /hpf (<5) Urine Bacteria None seen /hpf (None Seen) Urine Creatinine 16.04 mg/dL (30.0-125.0) Urine Protein/Creatinine Ratio 1.43 Urine Sodium 35 mmol/L (40-220) Urine Glucose 4+ mg/dL (Normal) Urine Total Protein 23.0 mg/dL (1-14) Urine Opiates Screen Neg (NEGATIVE) Urine Fentanyl Screen Neg (NEGATIVE) Urine Barbiturates Screen Neg (NEGATIVE) Urine Phencyclidine Screen Neg (NEGATIVE) Urine Amphetamines Screen Neg (NEGATIVE) Urine Benzodiazepines Screen Neg (NEGATIVE) Urine Cocaine Screen Neg (NEGATIVE) Urine Cannabinoids Screen Neg (NEGATIVE) Influenza Type A Antigen Negative (Negative) Influenza Type B Antigen Negative (Negative) SARS-CoV-2 Antigen (Rapid) Negative (NEGATIVE) Test 11/26/24 13:39 11/26/24 12:15 Troponin I High Sensitivity 5 ng/L (</=34) Prothrombin Time 10.9 sec (9.3-11.8) Prothrombin Time INR 1.03 (0.9-1.15) Activated Partial Thromboplast Time 27.6 SEC (24.5-34.5) Hemoglobin A1c 5.5 % A1C (<5.7) Magnesium Level 2.1 mg/dL (1.6-2.6) B-Type Natriuretic Peptide 45.16 pg/mL (0-100) Vitamin B12 Level > 4000 pg/mL (211-911) Vitamin D 25-Hydroxy 71.7 ng/mL (30.0-100) Thyroid Stimulating Hormone (TSH) 0.11 uIU/mL (0.55-4.78) Other Laboratory Tests 11/28/24 10:30 11/27/24 06:21 Brief Hx & Hospital Course: Isatu Arvizu is an elderly female with a past medical history of heart failure with preserved ejection fraction (HFpEF, EF 60%), hypertension, hypothyroidism, dyslipidemia, chronic kidney disease, and a history of transcatheter aortic valve replacement (TAVR) in 2019. She presented to the Emergency Department with complaints of generalized weakness and chest pain for one day. Her blood pressure at home was noted to be elevated around 160 mmHg, prompting her visit. Workup for acute coronary syndrome (ACS) was negative, including serial troponins, EKG (which showed no acute ST changes), and a non-elevated BNP. Pericarditis was also ruled out. Chest pain was attributed to hypertensive urgency. She was managed under the chest pain protocol with aspirin, nitroglycerin, and morphine. An echocardiogram LVEF was around 55%. Cardiology was consulted and recommended no further ischemic workup, advising continued blood pressure monitoring and guideline-directed medical therapy (GDMT), including Entresto, ranolazine, Coreg, and Jardiance. Her hypothyroidism is stable on levothyroxine 25 mcg daily. She also had an episode of acute kidney injury (NANDINI) likely secondary to volume management on underlying CKD, and labs will continue to be monitored. She was maintained on Protonix and Lovenox during her stay and placed on a cardiac diet. The patients condition improved during hospitalization. She remained hemodynamically stable and was deemed safe for discharge. She was advised to resume her home medications, follow up with her primary care provider and invoice checker as scheduled, and adhere to lifestyle modifications including a heart-healthy diet and regular physical activity. Physical examination on the day of discharge: Pt is lying on bed General Appearance: Alert, Oriented X3, Cooperative, Not in acute distress HEENT: Atraumatic, Mucous membranes moist/pink Respiratory: Clear to auscultation, Normal air movement, No added sounds Cardiovascular: Regular rate, Normal S1, Normal S2, No murmurs Abdominal: Active bowel sounds, Soft, no distention, no tenderness Extremities: No edema, Normal pulses, No tenderness/swelling Skin: No Significant rash, except past surgical scars Neuro: Normal speech, sensorimotor deficits none Psych/Mental Status: Mental status NL, Mood NL Nurse was there as organ teacher during examination Nursing staff helped with translation Goals of care discussed with the patient for 20 minutes; full code Discussed with Dr. Johnston Consults/Reason for consult Cardiology for chest pain Operations or Procedures ECHO Conclusion Left ventricle: Concentric left ventricular hypertrophy was seen. LVEF was around 55%. No gross wall motion abnormality was observed. Abnormal relaxation of left ventricular diastolic function was observed. Right ventricle: Right ventricle was normal-sized with normal systolic function. Left atrium was mildly dilated. Right atrium was normal-sized. Aortic valve: Bioprosthetic valve was positioned at aortic valve area. There was no mismatch/regurgitation/stenosis. It was working properly. There was trace mitral regurgitation. There was trace tricuspid regurgitation. There was trace pulmonary valve insufficiency. As there was no good tricuspid regurgitation jet, right ventricular systolic pressure could not be estimated. There was no pericardial effusion. Condition at Discharge: Stable Final Diagnosis/Problems List # Chest pain ruled out ACS likely from hypertension # hypertensive urgency # Chronic HFpEF EF 60% not in exacerbation # History of TAVR 2019 # Ruled out pericarditis # hypothyroidism # NANDINI likely VMN on CKD Discharge Disposition: Home Discharge Instruct/Medications Diet: Consistent carbohydrate, Cardiac 2g Na,low cholest Activity: No Restrictions, As Tolerated Follow Up/Referral: PCP within one week Cardiology within 2 to 4 weeks Medications: Resume home meds Discharge Statement: "Patient was advised to return to the ER or call 911 if any headaches, dizziness, shortness of breath, chest pain, abdominal pain, bleeding, fevers, or worsening of medical condition. Patient was counseled about treatment plan, medications, possible side effects, patientverbalized understanding. All questions were answered to the best of my ability. This discharge took greater then 30 minutes in planning, reviewing documentation, counseling the patient, and discussing with other team members." ASSESSMENT ASSESSMENT Assessment # Chest pain ruled out ACS likely from hypertension # hypertensive urgency # Chronic HFpEF EF 60% not in exacerbation # History of TAVR 2019 # Ruled out pericarditis # hypothyroidism # NANDINI likely VMN on CKD Addendum Addendum Addendum I was physically present for the yanes portions of the service provided to patient by THE RESIDENT. I have reviewed the documentation, discussed the case with resident and agree with the resident's documentation except as noted. Also the patient's clinical case was discussed with the patient's nurse. This medical document was created using an electronic medical record system with computerized dictation system. Although this document has been carefully reviewed, there might still be some phonetic and typographical errors. These areas are purely typographical due to imperfections of the software programs, and do not reflect any compromise in the patient's medical care. Late signature. Date of Service: November 29, 2024 Billing Provider: DEEPAK JOHNSTON MD Common Visit Codes: 79102-VUZ/OBS DISCH DAY >30min Secondary Visit Codes: 02397-[id number] CARE PLAN 30 MINUTES (20 minutes) MATT AMAYA RESIDENT November 29, 2024 11:55 DEEPAK JOHNSTON MD November 30, 2024 06:55
[2024-11-29 13:19] VITALS: BP 136/51; PULSE 73; RESP 18; TEMP 98.3; O2SAT 100
[2024-11-29 16:47] VITALS: BP 147/50; PULSE 73; RESP 17; TEMP 98.4; O2SAT 99
== END 2024-11-29 17:20 | disposition home or self-care (01) | DRG 304 ==
LOC: ER 12:08 → OVERFLOW 14:16 → TELE-WESTW 22:31
PROVIDERS: ADMIT Internal Medicine; ATTEND Internal Medicine
DX: I16.0 Hypertensive urgency (principal); N17.0 Acute kidney failure with tubular necrosis; I50.32 Chronic diastolic (congestive) heart failure; N18.30 Chronic kidney disease, stage 3 unspecified; E03.9 Hypothyroidism, unspecified; E11.22 Type 2 diabetes mellitus with diabetic chronic kidney disease; E78.5 Hyperlipidemia, unspecified; I13.0 Hypertensive heart and chronic kidney disease with heart failure and stage 1 through stage 4 chronic kidney disease, or unspecified chronic kidney disease; I34.81 Nonrheumatic mitral (valve) annulus calcification; I25.10 Atherosclerotic heart disease of native coronary artery without angina pectoris; Z79.84 Long term (current) use of oral hypoglycemic drugs; Z79.899 Other long term (current) drug therapy; Z79.82 Long term (current) use of aspirin; Z90.49 Acquired absence of other specified parts of digestive tract; Z95.2 Presence of prosthetic heart valve; Z82.49 Family history of ischemic heart disease and other diseases of the circulatory system
CPT/HCPCS: 36415; 71045; 80048; 80053; 80307; 81001; 82306; 82570; 82607; 83036; 83735; 83880; 84156; 84300; 84443; 84484; 85025; 85610; 85730; 86803; 87340; 87426; 87804; 93005; 93306; 99291; 99292; G0378; J2470